=== PATIENT | female | born 1955 | race Caucasian/White ===

== ENCOUNTER 2018-04-28 20:00 | Emergency (ER) | payer SELFPAY ==
[2016-09-16 13:04] VITALS: Wt 86.2 kg
[~2018-04-28 20:00] MED LIST: AMLO-111 PO; AMLO2.5T76 PO; ASPI-1471 PO; ASPI-879 PO; ATOR10TA24 PO; CHOL400C10 PO; CITA-145 PO; DILT120T13 PO; DILT240C PO; DILT240C76 PO; DILT360C35 PO; GARL1CAP15 PO; LEVO50TA86 PO; LEVO75TA68 PO; LEVO75TA73 PO; LISI20TA29 PO; LUTE6CAP11 PO; MAG 64 PO; METO25TA93 PO; NEBI10TA4 PO; PRO150 PO; RIVA15TA PO; RIVA20TA PO
[2018-04-28] MEDS ORDERED: DILT120T13 PO (20:19)
[2018-04-28] MEDS ORDERED: DILT60TA33 PO (20:19)
[2018-04-28] MEDS ORDERED: NS(*) 0.9% 1000 ML BAG 1,000 ML IV ONE ×2 (20:25→22:00)
[2018-04-28 20:35] LABS: PLATELET COUNT, AUTOMATED 161 K/uL (150-450)
--- NOTE | 2018-04-28 20:36 | ER Report ---
History and Physical Time Seen By MD: 20:10 Hx. of Stated Complaint: pt c/o "Afib attack" onset approx 33 hours ago (pt was out of town), tried to convert at home but was unsuccessful. Pt c/o weakness and fatigue. HPI/ROS CHIEF COMPLAINT: irregular heartrate HISTORY OF PRESENT ILLNESS: Frank is 63-year-old female with history of known paroxysmal a atrial fibrillation. This has been complicated by history of ischemic stroke 2. The most recent was 2 years ago and was prior to her being placed on Xarelto. She does not currently have a instructional coach. Patient occasionally goes into atrial fibrillation, which she identifies by fast heart rate as well as feeling of fatigue. Patient denies chest pain, shortness of angelica ath, nausea, vomiting, fever, change in diet, exercise, or travel. Patient denies swelling in legs or leg pain. Patient states she has had cardioversion successfully previously and is hoping for some type of conversion of her rhythm back into sinus rhythm. REVIEW OF SYSTEMS: Constitutional: No fever, no chills. Eyes: No discharge. ENT: No sore throat. Cardiovascular: No chest pain, no palpitations. Respiratory: No cough, no shortness of breath. Gastrointestinal: No abdominal pain, no vomiting. Genitourinary: no urinary symptoms Musculoskeletal: No back pain. Skin: No rashes. Neurological: No headache. Remainder of the 14 system rev: Yes Allergies: Coded Allergies: Sulfa (Sulfonamide Antibiotics) (Verified Allergy, Severe, Slufing of sk in, 04/28/18) Penicillins (Verified Allergy, Unknown, ANAPHYLAXIS, 04/28/18) ALL "CILLINS" Tetracyclines (Verified Allergy, Unknown, ANAPHYLAXIS, 04/28/18) Home Meds Reported Medications Diltiazem Hcl (DILTIAZEM HCL) 60 Mg Tablet, 60 MG PO QPM 04/28/18 Diltiazem Hcl (DILTIAZEM HCL) 120 Mg Tablet, 120 MG PO QAM 04/28/18 Rivaroxaban 15 Mg (XARELTO 15 MG) 15 Mg Tablet, 15 MG PO DAILY, TAB 01/25/17 Levothyroxine Sodium (LEVOTHYROXINE SODIUM) 50 Mcg Tablet, 50 MCG PO QDAY, TAB 01/25/17 Discontinued Reported Medications [Mag 64] No Conflict Check, PO DAILY 01/25/17 Reviewed Nurses Notes: Yes Old Medical Records Reviewed: Yes Hx Smoking: No Smoking Status: Never Smoker Hx Substance Use Disorder: No Hx Alcohol Use: No Constitutional Vital Sign - Last 24 Hours 04/28/18 04/28/18 04/28/18 04/28/18 20:00 20:05 20:05 20:06 Temp 97.5 Pulse ??? 109 ??? Resp 16 B/P (MAP) 128/100 (109) Pulse Ox 98 O2 Delivery Room Air 04/28/18 04/28/18 04/28/18 04/28/18 20:10 20:13 20:15 20:20 Pulse 96 ??? 87 Resp 11 15 17 B/P (MAP) 135/97 (110) 145/100 (115) Pulse Ox 97 97 95 04/28/18 04/28/18 04/28/18 04/28/18 20:25 20:30 20:35 20:40 Pulse 90 81 78 ??? Resp 12 12 12 B/P (MAP) 114/90 (98) Pulse Ox 97 91 95 04/28/18 04/28/18 04/28/18 04/28/18 20:45 20:50 20:55 21:00 Pulse ??? 72 78 89 Resp 15 15 9 16 B/P (MAP) 114/106 (109) 115/81 (92) Pulse Ox 95 95 94 04/28/18 04/28/18 04/28/18 04/28/18 21:05 21:10 21:15 21:20 Pulse 75 76 66 Resp 18 9 9 14 B/P (MAP) 104/77 (86) Pulse Ox 96 96 95 97 04/28/18 04/28/18 04/28/18 04/28/18 21:25 21:28 21:30 21:35 Pulse 71 80 71 71 Resp 16 10 11 B/P (MAP) 107/85 (92) 113/81 (92) 105/70 (82) Pulse Ox 98 95 04/28/18 04/28/18 04/28/18 04/28/18 21:40 21:42 21:45 21:50 Pulse 60 58 Resp 14 9 10 B/P (MAP) 90/73 (79) 102/70 (81) 99/72 (81) 97/68 (78) Pulse Ox 94 97 95 04/28/18 04/28/18 04/28/18 04/28/18 21:55 22:00 22:05 22:10 Pulse 58 ??? 59 59 Resp 8 10 17 5 B/P (MAP) 94/64 (74) 94/69 (77) 93/71 (78) Pulse Ox 96 97 94 96 04/28/18 22:20 Pulse 56 Resp 7 B/P (MAP) 88/64 (72) Pulse Ox 96 Physical Exam General Appearance: [The patient is alert, has no immediate need for airway protection and no signs of toxicity.] [ ] Eyes: Pupils equal and round no pallor or injection. ENT, Mouth: Mucous membranes are moist. No thyroid mass, no carotid bruit Respiratory: There are no retractions, lungs are clear to auscultation. Cardiovascular: irregular rhythm, borderline tachycardia, pulses = in all extremities. Gastrointestinal: Abdomen is soft and non tender, no masses, bowel sounds normal. Neurological: alert, oriented, moves all extremities, no gross cn deficits Skin: Warm and dry, no rashes. Musculoskeletal: Neck is supple non tender. Extremities are nontender, nonswollen and have full range of motion. [ ] DIFFERENTIAL DIAGNOSIS: After history and physical exam differential diagnosis was considered for electrolyte disorder, acute ischemia, VTE, dehydration, hyperthyroid, or other emergent cause of atrial fibrillation. Medical Decision Making Data Points Result Diagram: 04/28/18200404/28/182004 Laboratory Hematology Test 04/28/18 20:05 Red Blood Count 5.10 M/uL (4.17-5.56) Mean Corpuscular Volume 90.7 fL (80.0-96.0) Mean Corpuscular Hemoglobin 31.9 pg (26.0-33.0) Mean Corpuscular Hemoglobin Concent 35.2 g/dL (32.0-36.0) Red Cell Distribution Width 12.7 % (11.5-14.5) Mean Platelet Volume 9.1 fL (7.2-11.1) Neutrophils (%) (Auto) 36.0 % (39.4-72.5) Lymphocytes (%) (Auto) 41.7 % (17.6-49.6) Monocytes (%) (Auto) 21.1 % (4.1-12.4) Eosinophils (%) (Auto) 0.3 % (0.4-6.7) Basophils (%) (Auto) 0.9 % (0.3-1.4) Nucleated RBC Relative Count (auto) 0.0 /100WBC Neutrophils # (Auto) 2.0 K/uL (2.0-7.4) Lymphocytes # (Auto) 2.3 K/uL (1.3-3.6) Monocytes # (Auto) 1.2 K/uL (0.3-1.0) Eosinophils # (Auto) 0.0 K/uL (0.0-0.5) Basophils # (Auto) 0.0 K/uL (0.0-0.1) Nucleated RBC Absolute Count (auto) 0.00 K/uL Peripheral Blood Smear Yes Y/N Sodium Level 139 mmol/L (137-145) Potassium Level 3.8 mmol/L (3.5-5.0) Chloride Level 103 mmol/L (98-107) Carbon Dioxide Level 23 mmol/L (22-31) Blood Urea Nitrogen 16 mg/dl (7-18) Creatinine 0.90 mg/dl (0.52-1.04) Glomerular Filtration Rate Calc > 60.0 Random Glucose 120 mg/dl (75-110) Calcium Level 9.5 mg/dl (8.4-10.2) Phosphorus Level 3.4 mg/dl (2.5-4.5) Magnesium Level 2.5 mg/dl (1.7-2.2) Total Bilirubin 0.6 mg/dl (0.2-1.3) Aspartate Amino Transf (AST/SGOT) 28 U/L (0-35) Alanine Aminotransferase (ALT/SGPT) 30 U/L (0-56) Alkaline Phosphatase 49 U/L (0-126) Total Protein 8.4 g/dl (6.3-8.2) Albumin 4.6 g/dl (3.5-5.0) Chemistry Test 04/28/18 20:05 White Blood Count 5.5 k/uL (4.5-11.0) Red Blood Count 5.10 M/uL (4.17-5.56) Hemoglobin 16.3 g/dL (12.0-16.0) Hematocrit 46.3 % (34.0-47.0) Mean Corpuscular Volume 90.7 fL (80.0-96.0) Mean Corpuscular Hemoglobin 31.9 pg (26.0-33.0) Mean Corpuscular Hemoglobin Concent 35.2 g/dL (32.0-36.0) Red Cell Distribution Width 12.7 % (11.5-14.5) Platelet Count 161 K/uL (150-450) Mean Platelet Volume 9.1 fL (7.2-11.1) Neutrophils (%) (Auto) 36.0 % (39.4-72.5) Lymphocytes (%) (Auto) 41.7 % (17.6-49.6) Monocytes (%) (Auto) 21.1 % (4.1-12.4) Eosinophils (%) (Auto) 0.3 % (0.4-6.7) Basophils (%) (Auto) 0.9 % (0.3-1.4) Nucleated RBC Relative Count (auto) 0.0 /100WBC Neutrophils # (Auto) 2.0 K/uL (2.0-7.4) Lymphocytes # (Auto) 2.3 K/uL (1.3-3.6) Monocytes # (Auto) 1.2 K/uL (0.3-1.0) Eosinophils # (Auto) 0.0 K/uL (0.0-0.5) Basophils # (Auto) 0.0 K/uL (0.0-0.1) Nucleated RBC Absolute Count (auto) 0.00 K/uL Peripheral Blood Smear Yes Y/N Glomerular Filtration Rate Calc > 60.0 Calcium Level 9.5 mg/dl (8.4-10.2) Phosphorus Level 3.4 mg/dl (2.5-4.5) Magnesium Level 2.5 mg/dl (1.7-2.2) Total Bilirubin 0.6 mg/dl (0.2-1.3) Aspartate Amino Transf (AST/SGOT) 28 U/L (0-35) Alanine Aminotransferase (ALT/SGPT) 30 U/L (0-56) Alkaline Phosphatase 49 U/L (0-126) Total Protein 8.4 g/dl (6.3-8.2) Albumin 4.6 g/dl (3.5-5.0) EKG/Imaging EKG Interpretation 12 lead EKG: Rhythm: atrial fibrillation, PVC Mosca: normal QRS: normal ST segments: borderline st depression af, v5-6; TWI V4-6 [ ] Rpt EK Rhythm - sinus bradycardia Mosca - nl qrs - nl ST segments - flattened ST throughout; TWI V4-5 Monitor Interpretation: Atrial Fibrillation ED Course/Re-evaluation ED Course Patient presents with relation and an apparent onset of one day ago. Well patient does not have significant tachycardia, she is very symptomatic. Patient is hemodynamically stable so we discussed multiple options for potential treatment. After review of electrolytes and TSH to ensure that patient did not have significant clearly reversible cause of atrial fibrillation, after discussion Riss and benefits of various treatment methods, she ultimately agreed to attempted chemical conversion with which I elected to use procainamide. I monitored patient throughout procainamide infusion and at approximately 15 m inutes patient spontaneously converted without ill effect. We monitored patient who remained in sinus rhythm and asymptomatic in the ED stay. At this point we'll discharge and recommend close follow-up. Patient does not have instructional coach but is limited due to insurance. Recommend follow-up in [facility] with referral as indicated. Patient understands strict return precautions. Decision to Disposition Date: Apr 28, 2018 Decision to Disposition Time: 22:41 Critical Care Time I spent a total of 45 minutes of critical care time in obtaining history, performing a physical exam, bedside monitoring of interventions, collecting and interpreting tests and discussion with consultants but not including time spent performing procedures. Depart Departure Latest Vital Signs Vital Signs Date Time Temp Pulse Resp B/P (MAP) Pulse Ox O2 Delivery O2 Flow Rate FiO2 04/28/18 22:20 56 7 88/64 (72) 96 04/28/18 20:05 97.5 Room Air Impression: Primary Impression: Rapid atrial fibrillation Condition: Improved Disposition: HOME OR SELF-CARE Patient Instructions: A-fib (Atrial Fibrillation) (ED) Additional Instructions: As we discussed, follow up with your primary doctor for further recommendations for management of your intermittent atrial fibrillation. Return for any concerns. LIZ WHITMAN MD Apr 28, 2018 20:36
[2018-04-28] MEDS ORDERED: D5W IVPB ONE (20:55)
[2018-04-28] MEDS ORDERED: PROCAINAMIDE HCL IVPB ONE (20:55)
--- NOTE | 2018-04-28 21:00 | RADIOLOGY IMAGING REPORT ---
[place] [facility] [place] Jenae Burrows : 1955 MR: [id number] V: [id number] EXAM DATE: ORDERING PHYSICIAN: LIZ WHITMAN TECHNOLOGIST: Location: [facility] [place] Patient: Jenae Burrows : 1955 Visit/Account:[id number] Date of Sevice: 04/28/2018 Examination: CHEST SINGLE AP Comparison: 01/25/2017 and earlier. History: Shortness of breath. Findings: Cardiac and hilar contour size is within normal limits. No consolidation, nodule, or peribr onchial inflammation. No pneumothorax, edema, or effusion. Osseous structures are intact. IMPRESSION: No evidence of acute cardiopulmonary disease. Report Dictated By: Darrick Hassan MD at 04/28/2018 8:55 PM Report E-Signed By: Darrick Hassan MD at 04/28/2018 8:56 PM WSN:[id number]
--- NOTE | 2018-04-28 22:06 | EKG ---
FACILITY: [facility] - [place] PATIENT NAME: DAWN ASHLEY : [id number] MR: [id number] V: [id number] EXAM DATE: ORDERING PHYSICIAN: LIZ WHITMAN TECHNOLOGIST: QUINCY Test Reason : cardiovert Blood Pressure : / mmHG Vent. Rate : 058 BPM Atrial Rate : 058 BPM P-R Int : 168 ms QRS Dur : 088 ms QT Int : 446 ms P-R-T Axes : -27 006 -43 degrees QTc Int : 437 ms Sinus bradycardia Diffuse T flattening T inversion consistent with anterior ischemia vs normal variant When compared with ECG of 28-APR-2018 20:07, Sinus rhythm has replaced Atrial fibrillation Vent. rate has decreased BY 39 BPM T inversion now more pronounced Confirmed by VENKAT ROACH ([id number]) on 04/29/2018 3:28:19 AM Referred By: J CARLOS Confirmed By:VENKAT ROACH
--- NOTE | 2018-04-28 22:06 | EKG ---
FACILITY: [facility] PATIENT NAME: DAWN ASHLEY : [id number] MR: [id number] V: [id number] EXAM DATE: ORDERING PHYSICIAN: LIZ WHITMAN TECHNOLOGIST: QUINCY Test Reason : cardiovert Blood Pressure : / mmHG Vent. Rate : 059 BPM Atrial Rate : 059 BPM P-R Int : 216 ms QRS Dur : 084 ms QT Int : 460 ms P-R-T Axes : 000 010 -14 degrees QTc Int : 455 ms Sinus bradycardia with 1st degree AV block T inversion consistent with ant ischemia Diffuse T flattening When compared with ECG of 28-APR-2018 21:42, RI interval has increased Confirmed by VENKAT ROACH ([id number]) on 04/29/2018 3:29:12 AM Referred By: J CARLOS Confirmed By:VENKAT ROACH
--- NOTE | 2018-04-28 22:10 | EKG ---
FACILITY: [facility] PATIENT NAME: DAWN ASHLEY : [id number] MR: [id number] V: [id number] EXAM DATE: ORDERING PHYSICIAN: LIZ WHITMAN TECHNOLOGIST: QUINCY Test Reason : a fib Blood Pressure : / mmHG Vent. Rate : 097 BPM Atrial Rate : 312 BPM P-R Int : 000 ms QRS Dur : 076 ms QT Int : 346 ms P-R-T Axes : 000 004 265 degrees QTc Int : 439 ms Atrial fibrillation with PVC ST and T wave abnormality, consider lateral ischemia or digitalis effect Abnormal ECG When compared with ECG of 16-FEB-2017 01:39, ST no longer depressed in Anterior leads Now with lateral T inversion Confirmed by VENKAT ROACH ([id number]) on 04/29/2018 3:26:56 AM Referred By: J CARLOS Confirmed By:VENKAT ROACH
[2018-04-28 22:40] VITALS: BP 101/71
== END 2018-04-28 22:53 | disposition home or self-care (01) ==
LOC: ER 20:12
DX: I48.91 Unspecified atrial fibrillation (principal); I44.0 Atrioventricular block, first degree; R94.31 Abnormal electrocardiogram [ECG] [EKG]
CPT/HCPCS: 71045; 83735; 84100; 84443; 85025; 93005; 96361; 96365; 99291; J2690; J7030; J7060; 82040; 82247; 82310; 82374; 82435; 82565; 82947; 84075; 84132; 84155; 84295; 84450; 84460; 84520

== ENCOUNTER 2018-05-04 21:19 | Emergency (ER) | payer SELFPAY ==
[2016-09-16 13:04] VITALS: BMI 26.4
[~2018-05-04 21:19] MED LIST changes: +DILT60TA33 PO
--- NOTE | 2018-05-04 21:28 | ER Report ---
History and Physical Time Seen By MD: 21:28 HPI/ROS CHIEF COMPLAINT: Rapid atrial fibrillation HISTORY OF PRESENT ILLNESS: 64-year-old female. The history of paroxysmal atrial fibrillation. She is undergone many cardioversions. She has a previous ER visit from approximately 10 days ago here where she was treated with IV procainamide for conversion. Patient notes a mild fatigue and dizziness. Patient denies chest pain, shortness of breath or diaphoresis. REVIEW OF SYSTEMS: Respiratory: No cough, no dyspnea. Cardiovascular: As above Gastrointestinal: No vomiting, no abdominal pain. Musculoskeletal: No back pain. Allergies: Coded Allergies: Sulfa (Sulfonamide Antibiotics) (Verified Allergy, Severe, Slufing of skin, 05/04/18) Penicillins (Verified Allergy, Unknown, ANAPHYLAXIS, 05/04/18) ALL "CILLINS" Tetracyclines (Verified Allergy, Unknown, ANAPHYLAXIS, 05/04/18) Home Meds Reported Medications Diltiazem Hcl (DILTIAZEM HCL) 60 Mg Tablet, 60 MG PO QPM 04/28/18 Diltiazem Hcl (DILTIAZEM HCL) 120 Mg Tablet, 120 MG PO QAM 04/28/18 Rivaroxaban 15 Mg (XARELTO 15 MG) 15 Mg Tablet, 15 MG PO DAILY, TAB 01/25/17 Levothyroxine Sodium (LEVOTHYROXINE SODIUM) 50 Mcg Tablet, 50 MCG PO QDAY, TAB 01/25/17 Discontinued Reported Medications [Mag 64] No Conflict Check, PO DAILY 01/25/17 Reviewed Nurses Notes: Yes Old Medical Records Reviewed: Yes Hx Smoking: No Smoking Status: Never Smoker Hx Substance Use Disorder: No Hx Alcohol Use: No Constitutional Vital Sign - Last 24 Hours 05/04/18 05/04/18 05/04/18 05/04/18 21:19 21:27 21:27 21:29 Temp 98.3 Pulse ??? 147 Resp 16 B/P (MAP) 212/159 (176) 212/159 217/158 (177) Pulse Ox 93 O2 Delivery Room Air 05/04/18 05/04/18 05/04/18 05/04/18 21:49 22:00 22:19 22:30 Pulse 131 119 Resp 11 8 B/P (MAP) 115/93 (100) 162/115 (131) Pulse Ox 95 95 05/04/18 05/04/18 05/04/1829/18 22:35 22:40 22:45 22:50 Pulse 117 123 125 128 Resp 12 6 5 7 B/P (MAP) 156/91 (112) 134/112 (119) 146/94 (111) Pulse Ox 97 98 95 96 05/04/18 05/04/18 05/04/18 05/04/18 22:55 23:00 23:05 23:10 Pulse 114 Resp 6 B/P (MAP) 143/116 (125) 129/104 (112) 134/124 (127) 130/115 (120) Pulse Ox 96 05/04/18 05/04/18 05/04/18 05/04/18 23:15 23:20 23:25 23:30 Pulse 130 Resp 14 B/P (MAP) 147/133 (138) 83/35 (51) 102/93 (96) 114/97 (103) Pulse Ox 98 05/04/18 05/04/18 05/04/18 05/04/18 23:35 23:40 23:45 23:50 Pulse 108 Resp 5 B/P (MAP) 99/79 (86) 94/57 (69) 121/94 (103) 114/82 (93) Pulse Ox 96 05/04/18 05/05/18 05/05/18 05/05/18 23:55 00:00 00:05 00:10 B/P (MAP) 134/113 (120) 101/69 (80) 92/69 (77) 80/69 (73) 05/05/18 05/05/18 05/05/18 05/05/18 00:15 00:20 00:25 00:30 Pulse 111 Resp 6 B/P (MAP) 107/95 (99) 109/96 (100) 82/66 (71) 100/90 (93) Pulse Ox 97 05/05/18 05/05/18 05/05/18 05/05/18 00:35 00:40 00:45 00:50 Pulse 124 79 Resp 6 11 B/P (MAP) 98/81 (87) 109/91 (97) 101/75 (84) 115/86 (96) Pulse Ox 97 95 05/05/18 05/05/18 00:55 01:10 Pulse 85 Resp 16 B/P (MAP) 105/80 (88) 142/85 (104) Pulse Ox 95 O2 Delivery Room Air Intake and Output 05/04/18 05/04/18 05/05/18 15:00 23:00 07:00 Intake Total 251 ml Balance 251 ml Physical Exam General Appearance: The patient is alert, has no immediate need for airway protection and no current signs of toxicity. svp operations shows atrial fibrillation with a rate of 167 bpm HEENT: Pupils equal and round no injection. Oropharynx without redness or exudate, mucous. Membranes are moist Respiratory: Chest is non tender, lungs are clear to auscultation. Cardiac: Tachycardic, irregular rate and rhythm Gastrointestinal: Abdomen is soft and non tender, no masses, bowel sounds normal. Musculoskeletal: Neck: Neck is supple and non tender. Extremities have full range of motion and are non tender. Skin: No rashes or lesions. DIFFERENTIAL DIAGNOSIS: After history and physical exam differential diagnosis was considered for tachycardia, SVT, atrial fibrillation with rapid ventricular response, ventricular tachycardia Medical Decision Making Data Points Result Diagram: 05/04/18213805/04/182138 Laboratory Hematology Test 05/04/18 21:39 Red Blood Count 5.12 M/uL (4.17-5.56) Mean Corpuscular Volume 90.0 fL (80.0-96.0) Mean Corpuscular Hemoglobin 31.5 pg (26.0-33.0) Mean Corpuscular Hemoglobin Concent 35.0 g/dL (32.0-36.0) Red Cell Distribution Width 13.1 % (11.5-14.5) Mean Platelet Volume 9.2 fL (7.2-11.1) Neutrophils (%) (Auto) 29.8 % (39.4-72.5) Lymphocytes (%) (Auto) 51.7 % (17.6-49.6) Monocytes (%) (Auto) 16.7 % (4.1-12.4) Eosinophils (%) (Auto) 0.5 % (0.4-6.7) Basophils (%) (Auto) 1.3 % (0.3-1.4) Nucleated RBC Relative Count (auto) 0.0 /100WBC Neutrophils # (Auto) 1.4 K/uL (2.0-7.4) Lymphocytes # (Auto) 2.4 K/uL (1.3-3.6) Monocytes # (Auto) 0.8 K/uL (0.3-1.0) Eosinophils # (Auto) 0.0 K/uL (0.0-0.5) Basophils # (Auto) 0.1 K/uL (0.0-0.1) Nucleated RBC Absolute Count (auto) 0.00 K/uL Sodium Level 140 mmol/L (137-145) Potassium Level 3.9 mmol/L (3.5-5.0) Chloride Level 99 mmol/L (98-107) Carbon Dioxide Level 25 mmol/L (22-31) Blood Urea Nitrogen 19 mg/dl (7-18) Creatinine 1.00 mg/dl (0.52-1.04) Glomerular Filtration Rate Calc 55.8 Random Glucose 109 mg/dl (75-110) Calcium Level 9.9 mg/dl (8.4-10.2) Total Bilirubin 0.5 mg/dl (0.2-1.3) Aspartate Amino Transf (AST/SGOT) 29 U/L (0-35) Alanine Aminotransferase (ALT/SGPT) 30 U/L (0-56) Alkaline Phosphatase 80 U/L (0-126) Troponin I < 0.012 ng/ml Total Protein 8.9 g/dl (6.3-8.2) Albumin 4.9 g/dl (3.5-5.0) Chemistry Test 05/04/18 21:39 White Blood Count 4.7 k/uL (4.5-11.0) Red Blood Count 5.12 M/uL (4.17-5.56) Hemoglobin 16.1 g/dL (12.0-16.0) Hematocrit 46.1 % (34.0-47.0) Mean Corpuscular Volume 90.0 fL (80.0-96.0) Mean Corpuscular Hemoglobin 31.5 pg (26.0-33.0) Mean Corpuscular Hemoglobin Concent 35.0 g/dL (32.0-36.0) Red Cell Distribution Width 13.1 % (11.5-14.5) Platelet Count 152 K/uL (150-450) Mean Platelet Volume 9.2 fL (7.2-11.1) Neutrophils (%) (Auto) 29.8 % (39.4-72.5) Lymphocytes (%) (Auto) 51.7 % (17.6-49.6) Monocytes (%) (Auto) 16.7 % (4.1-12.4) Eosinophils (%) (Auto) 0.5 % (0.4-6.7) Basophils (%) (Auto) 1.3 % (0.3-1.4) Nucleated RBC Relative Count (auto) 0.0 /100WBC Neutrophils # (Auto) 1.4 K/uL (2.0-7.4) Lymphocytes # (Auto) 2.4 K/uL (1.3-3.6) Monocytes # (Auto) 0.8 K/uL (0.3-1.0) Eosinophils # (Auto) 0.0 K/uL (0.0-0.5) Basophils # (Auto) 0.1 K/uL (0.0-0.1) Nucleated RBC Absolute Count (auto) 0.00 K/uL Glomerular Filtration Rate Calc 55.8 Calcium Level 9.9 mg/dl (8.4-10.2) Total Bilirubin 0.5 mg/dl (0.2-1.3) Aspartate Amino Transf (AST/SGOT) 29 U/L (0-35) Alanine Aminotransferase (ALT/SGPT) 30 U/L (0-56) Alkaline Phosphatase 80 U/L (0-126) Troponin I < 0.012 ng/ml Total Protein 8.9 g/dl (6.3-8.2) Albumin 4.9 g/dl (3.5-5.0) EKG/Imaging EKG Interpretation 12 lead EK Rhythm: Atrial fibrillation with rapid ventricular response, rate 162 [place]: normal QRS: normal ST segments: Diffuse nonspecific ST and T-wave changes 12 lead EK Rhythm: normal sinus rhythm, rate of 75 bpm Dal[place]ell: normal QRS: normal ST segments: normal, no evidence of ischemia or dysrhythmia Imaging X-ray: Two-view chest x-ray was obtained. I viewed the images myself on the PACS system. My interpretation of the images is: No infiltrate, no effusion, normal mediastinum. The radiologist interpretation had no clinically significant variation from this interpretation. ED Course/Re-evaluation Clinical Indication for ER IV: Hydration, IV Access ED Course Patient was admitted to an examination room. H&P was done. The differential diagnoses was considered. On clinical examination. Patient has stable vital signs. The monitor shows she's been atrial fibrillation with rapid ventricular rate in the 160s. She has a long history of paroxysmal atrial fibrillation. Her recent ER visit. She converted with an infusion of procainamide. This will be repeated. She receives 2 g of procainamide over an hour and 15 minutes. She finally converts to sinus rhythm. An EKG is performed documenting it. Patient advised to follow-up with her telegraph installer. Decision to Disposition Date: May 05, 2018 Decision to Disposition Time: 00:52 Critical Care Time I spent a total of 60 of critical care time in obtaining history, performing a physical exam, bedside monitoring of interventions, collecting and interpreting tests and discussion with consultants but not including time spent performing procedures. Depart Departure Latest Vital Signs Vital Signs Date Time Temp Pulse Resp B/P (MAP) Pulse Ox O2 Delivery O2 Flow Rate FiO2 05/05/18 01:10 85 16 142/85 (104) 95 Room Air 05/04/18 21:27 98.3 Impression: Primary Impression: Paroxysmal atrial fibrillation with rapid ventricular response Condition: Improved Disposition: HOME OR SELF-CARE Patient Instructions: A-fib (Atrial Fibrillation) (ED) Additional Instructions: Follow-up with your primary care or telegraph installer. ANURADHA KURTZ DO May 04, 2018 21:28
[2018-05-04] MEDS ORDERED: DILTIAZEM 5 MG/ML 5ML IVPUSH IVP ONE (21:35)
--- NOTE | 2018-05-04 21:51 | EKG ---
FACILITY: [facility] - [place] PATIENT NAME: DAWN ASHLEY : [id number] MR: [id number] V: [id number] EXAM DATE: ORDERING PHYSICIAN: ANURADHA KURTZ TECHNOLOGIST: ANCA Test Reason : TACHYCARDIA Blood Pressure : / mmHG Vent. Rate : 162 BPM Atrial Rate : 163 BPM P-R Int : 000 ms QRS Dur : 088 ms QT Int : 288 ms P-R-T Axes : 000 002 172 degrees QTc Int : 472 ms Atrial fibrillation with rapid ventricular response ST and T wave abnormality, consider lateral ischemia or digitalis effect Abnormal ECG When compared with ECG of 28-APR-2018 21:52, Atrial fibrillation has replaced Sinus rhythm Vent. rate has increased BY [address] now depressed in Anterolateral leads Nonspecific T wave abnormality, improved in Anterior leads Inverted T waves have replaced nonspecific T wave abnormality in Lateral leads Confirmed by MUKESH FRAGOSO ([id number]) on 05/05/2018 6:24:38 AM Referred By: JERARDO Confirmed By:MUKESH FRAGOSO
[2018-05-04 21:54] LABS: PLATELET COUNT, AUTOMATED 152 K/uL (150-450)
[2018-05-04] MEDS ORDERED: PROCAINAMIDE HCL IVPB PRN (22:05)
[2018-05-04] MEDS ORDERED: D5W IVPB PRN (22:05)
--- NOTE | 2018-05-04 22:42 | RADIOLOGY IMAGING REPORT ---
FACILITY: [facility] - [place] PATIENT NAME: Jenae Burrows : 1955 MR: [id number] V: [id number] EXAM DATE: ORDERING PHYSICIAN: ANURADHA KURTZ TECHNOLOGIST: Location: [facility] Patient: Jenae Burrows : 1955 Visit/Account:[id number] Date of Sevice: 05/04/2018 CHEST SINGLE AP Indication: Chest pain. Comparison: 04/28/2018 Findings: The lungs are clear. No pneumothorax or pleural effusion. Heart size is normal. IMPRESSION: 1. No acute cardiopulmonary process. Report Dictated By: Eliseo Dubon at 05/04/2018 10:36 PM Report E-Signed By: Eliseo Dubon at 05/04/2018 10:38 PM WSN:[id number]
[2018-05-05] MEDS ORDERED: DILTIAZEM 5 MG/ML 5ML IVPUSH IVP ONE (00:50)
[2018-05-05 01:10] VITALS: BP 142/85
--- NOTE | 2018-05-05 06:40 | EKG ---
[place] [facility] [place] NAME: DAWN ASHLEY : [id number] MR: [id number] V: [id number] EXAM DATE: ORDERING PHYSICIAN: ANURADHA KURTZ TECHNOLOGIST: ANCA Test Reason : REPEAT Blood Pressure : / mmHG Vent. Rate : 077 BPM Atrial Rate : 077 BPM P-R Int : 184 ms QRS Dur : 086 ms QT Int : 424 ms P-R-T Axes : 074 -03 015 degrees QTc Int : 479 ms Normal sinus rhythm Nonspecific T wave abnormality Prolonged QT Abnormal ECG Confirmed by JACOBO BERRY ([id number]) on 05/05/2018 6:17:59 PM Referred By: JERARDO Confirmed By:JACOBO BERRY
== END 2018-05-05 01:10 | disposition home or self-care (01) ==
LOC: ER 21:31
DX: I48.0 Paroxysmal atrial fibrillation (principal)
CPT/HCPCS: 71045; 84484; 85025; 93005; 96365; 96366; 96375; J3490; J7060; 82040; 82247; 82310; 82374; 82435; 82565; 82947; 84075; 84132; 84155; 84295; 84450; 84460; 84520; 99291; J2690

== ENCOUNTER 2018-05-11 00:37 | Emergency (ER) | payer SELFPAY ==
[2016-09-16 13:04] VITALS: Wt 86.2 kg
[2018-05-11] MEDS ORDERED: DILT120T13 PO (00:58)
[2018-05-11] MEDS ORDERED: LEVO50TA86 PO ×3 (00:58→01:01)
[2018-05-11] MEDS ORDERED: NS(*) 0.9% 1000 ML BAG 1,000 ML IV ONE ×2 (01:20→02:25)
[2018-05-11] MEDS ORDERED: PROPOFOL EMUL 10MG/ML 20 ML VL IVP ONE (01:20)
--- NOTE | 2018-05-11 01:38 | ER Report ---
History and Physical Time Seen By MD: 00:48 Hx. of Stated Complaint: headache, dizzy, a-fib started about 11:30pm HPI/ROS CHIEF COMPLAINT: atrial fibrillation HISTORY OF PRESENT ILLNESS: This is a 63 year old female. She has a history of paroxysmal atrial fibrillation. 1130 today had onset with dizziness. Also with headache. No chest pain. Has the racing feeling and tightness, but no real chest pain. Not short of breath. No fevers or chills. Has had conversion with diltiazem, procainamide and synchronized cardioversion in the past. The last two visits were with procainamide. No nausea or abdominal pain. No recent illness, was feeling fine prior to the atrial fibrillation starting. Allergies: Coded Allergies: Sulfa (Sulfonamide Antibiotics) (Verified Allergy, Severe, Slufing of sk in, 05/11/18) Penicillins (Verified Allergy, Unknown, ANAPHYLAXIS, 05/11/18) ALL "CILLINS" Tetracyclines (Verified Allergy, Unknown, ANAPHYLAXIS, 05/11/18) Home Meds Active Scripts Lorazepam (ATIVAN) 0.5 Mg Tablet, 0.5 MG PO Q6H PRN for ANXIETY, #10 TAB 0 Refills Prov:JG EDOUARD MD 05/11/18 Reported Medications Levothyroxine Sodium (LEVOTHYROXINE SODIUM) 50 Mcg Tablet, 25 MCG PO QODAY, TAB 05/11/18 Levothyroxine Sodium (LEVOTHYROXINE SODIUM) 50 Mcg Tablet, 50 MCG PO QDAY, TAB 05/11/18 Diltiazem Hcl (DILTIAZEM HCL) 120 Mg Tablet, 120 MG PO BID 05/11/18 Rivaroxaban 15 Mg (XARELTO 15 MG) 15 Mg Tablet, 15 MG PO DAILY, TAB 01/25/17 Discontinued Reported Medications Levothyroxine Sodium (LEVOTHYROXINE SODIUM) 50 Mcg Tablet, 75 MCG PO evry other day, TAB 05/11/18 Diltiazem Hcl (DILTIAZEM HCL) 60 Mg Tablet, 60 MG PO QPM 04/28/18 Diltiazem Hcl (DILTIAZEM HCL) 120 Mg Tablet, 120 MG PO QAM 04/28/18 Levothyroxine Sodium (LEVOTHYROXINE SODIUM) 50 Mcg Tablet, 50 MCG PO QDAY, TAB 01/25/17 Reviewed Nurses Notes: Yes Hx Smoking: No Smoking Status: Never Smoker Hx Substance Use Disorder: No Hx Alcohol Use: No Constitutional Vital Sign - Last 24 Hours 05/11/18 05/11/18 05/11/18 05/11/18 00:37 00:42 00:42 00:52 Temp 98.4 Pulse ??? 124 124 Resp 16 7 B/P (MAP) 145/90 145/90 (108) Pulse Ox 99 98 O2 Delivery Room Air 05/11/18 05/11/18 05/11/18 05/11/18 01:07 01:12 01:18 01:22 Pulse 116 ??? 105 Resp 11 7 B/P (MAP) 141/83 (102) Pulse Ox 98 05/11/18 05/11/18 05/11/18 05/11/18 01:27 01:30 01:30 01:32 Pulse ??? 103 Resp 21 8 B/P (MAP) 138/123 (128) Pulse Ox 97 98 O2 Flow Rate 2.0 05/11/18 05/11/18 05/11/18 05/11/18 01:33 01:35 01:37 01:39 Pulse ??? B/P (MAP) 115/77 (90) 124/79 (94) 115/78 (90) Pulse Ox 94 05/11/18 05/11/18 05/11/18 05/11/18 01:42 01:44 01:47 01:48 Pulse 95 77 Resp 0 9 B/P (MAP) 95/69 (78) 103/67 (79) Pulse Ox 97 97 05/11/18 05/11/18 05/11/18 05/11/18 01:52 01:57 02:00 02:02 Pulse 83 80 74 Resp 6 7 5 B/P (MAP) 107/82 (90) 99/78 (85) Pulse Ox 98 98 99 05/11/18 05/11/18 05/11/18 05/11/18 02:04 02:07 02:08 02:12 Pulse 74 87 Resp 9 7 B/P (MAP) 110/87 (95) 103/74 (84) 105/92 (96) Pulse Ox 98 100 05/11/18 05/11/18 05/11/18 05/11/18 02:14 02:17 02:20 02:22 Pulse 90 96 Resp 10 9 B/P (MAP) 114/74 (87) 116/83 (94) Pulse Ox 99 99 05/11/18 05/11/18 05/11/18 05/11/18 02:24 02:27 02:28 02:32 Pulse 83 ??? Resp 7 8 B/P (MAP) 117/90 (99) 121/81 (94) 105/84 (91) Pulse Ox 98 100 05/11/18 05/11/18 05/11/18 05/11/18 02:36 02:37 02:40 02:42 Pulse 86 ??? Resp 12 10 B/P (MAP) 101/80 (87) 124/115 (118) Pulse Ox 100 99 05/11/18 05/11/18 05/11/18 05/11/18 02:44 02:47 02:48 02:52 Pulse ? B/P (MAP) ???/??? (1665) ???/??? (1665) 05/11/18 05/11/18 05/11/18 05/11/18 02:55 02:57 03:00 03:02 Pulse 79 78 Resp 10 B/P (MAP) 107/83 (91) 109/75 (86) Pulse Ox 98 05/11/18 05/11/18 05/11/18 05/11/18 03:07 03:12 03:16 03:17 Pulse 60 ??? 56 B/P (MAP) 104/70 (81) 101/75 (84) Pulse Ox 97 95 05/11/18 05/11/18 05/11/18 05/11/18 03:20 03:22 03:24 03:27 Pulse 56 52 B/P (MAP) 105/68 (80) 101/64 (76) Pulse Ox 97 97 05/11/18 05/11/18 05/11/18 05/11/18 03:28 03:32 03:36 03:37 Pulse 52 53 B/P (MAP) 104/68 (80) 102/67 (79) 99/68 (78) Pulse Ox 97 96 05/11/18 05/11/18 05/11/18 05/11/18 03:40 03:42 03:44 03:47 Pulse 51 53 B/P (MAP) 100/68 (79) 95/61 (72) Pulse Ox 95 98 05/11/18 05/11/18 05/11/18 05/11/18 03:48 03:52 03:56 03:57 Pulse 53 52 B/P (MAP) 92/66 (75) 90/61 (71) 95/59 (71) Pulse Ox 98 98 05/11/18 05/11/18 05/11/18 05/11/18 04:00 04:02 04:04 04:07 Pulse 55 51 B/P (MAP) 100/68 (79) 96/73 (81) Pulse Ox 96 97 05/11/18 05/11/18 05/11/18 05/11/18 04:08 04:12 04:16 04:17 Pulse ??? 48 B/P (MAP) 106/64 (78) 106/73 (84) 107/69 (82) Pulse Ox 96 95 05/11/18 05/11/18 05/11/18 04:20 04:22 04:24 Pulse 49 B/P (MAP) 115/78 (90) 120/74 (89) Pulse Ox 96 Intake and Output 05/10/18 05/10/18 05/11/18 15:00 23:00 07:00 Intake Total 2175 ml Balance 2175 ml Physical Exam General Appearance: The patient is alert. No acute distress. Non-toxic in appearance. Eyes: Pupils are equal, round. No pallor, injection or icterus. ENT: Mucous membranes are moist. Normal oral mucosa. Posterior oropharynx is normal. Neck: Supple and non tender. Respiratory: Lungs are clear to auscultation. Cardiovascular: Irregularly irregular rhythm with tachycardia. No murmurs, gallops or rubs. Normal capillary refill. Gastrointestinal: Abdomen is soft and non tender. Nondistended. Normal active bowel sounds. Neurological: Alert and oriented x3. No focal neurologic deficits Skin: Warm and dry. DIFFERENTIAL DIAGNOSIS: After history and physical exam, differential diagnosis was considered for atrial fibrillation with rapid ventricular rate. Medical Decision Making Data Points Result Diagram: 05/11/18 0051 05/11/18 0051 Laboratory Hematology Test 05/11/18 00:51 Red Blood Count 5.19 M/uL (4.17-5.56) Mean Corpuscular Volume 90.1 fL (80.0-96.0) Mean Corpuscular Hemoglobin 31.5 pg (26.0-33.0) Mean Corpuscular Hemoglobin Concent 34.9 g/dL (32.0-36.0) Red Cell Distribution Width 12.8 % (11.5-14.5) Mean Platelet Volume 9.6 fL (7.2-11.1) Neutrophils (%) (Auto) % (39.4-72.5) Lymphocytes (%) (Auto) % (17.6-49.6) Monocytes (%) (Auto) % (4.1-12.4) Eosinophils (%) (Auto) % (0.4-6.7) Basophils (%) (Auto) % (0.3-1.4) Nucleated RBC Relative Count (auto) /100WBC Neutrophils # (Auto) K/uL (2.0-7.4) Lymphocytes # (Auto) K/uL (1.3-3.6) Monocytes # (Auto) K/uL (0.3-1.0) Eosinophils # (Auto) K/uL (0.0-0.5) Basophils # (Auto) K/uL (0.0-0.1) Nucleated RBC Absolute Count (auto) K/uL Neutrophils % (Manual) 40 % (39.4-72.5) Lymphocytes % (Manual) 23 % (17.6-49.6) Atypical Lymphocytes % 13 % Monocytes % (Manual) 24 % (4.1-12.4) Eosinophils % (Manual) 0 % (0.4-6.7) Basophils % (Manual) 0 % (0.3-1.4) Peripheral Blood Smear Yes Y/N Sodium Level 138 mmol/L (137-145) Potassium Level 3.6 mmol/L (3.5-5.0) Chloride Level 100 mmol/L (98-107) Carbon Dioxide Level 24 mmol/L (22-31) Blood Urea Nitrogen 13 mg/dl (7-18) Creatinine 1.00 mg/dl (0.52-1.04) Glomerular Filtration Rate Calc 55.8 Random Glucose 95 mg/dl (75-110) Calcium Level 10.0 mg/dl (8.4-10.2) Total Bilirubin 0.5 mg/dl (0.2-1.3) Aspartate Amino Transf (AST/SGOT) 30 U/L (0-35) Alanine Aminotransferase (ALT/SGPT) 33 U/L (0-56) Alkaline Phosphatase 80 U/L (0-126) Troponin I < 0.012 ng/ml Total Protein 9.3 g/dl (6.3-8.2) Albumin 5.0 g/dl (3.5-5.0) Chemistry Test 05/11/18 00:51 White Blood Count 5.1 k/uL (4.5-11.0) Red Blood Count 5.19 M/uL (4.17-5.56) Hemoglobin 16.3 g/dL (12.0-16.0) Hematocrit 46.7 % (34.0-47.0) Mean Corpuscular Volume 90.1 fL (80.0-96.0) Mean Corpuscular Hemoglobin 31.5 pg (26.0-33.0) Mean Corpuscular Hemoglobin Concent 34.9 g/dL (32.0-36.0) Red Cell Distribution Width 12.8 % (11.5-14.5) Platelet Count 163 K/uL (150-450) Mean Platelet Volume 9.6 fL (7.2-11.1) Neutrophils (%) (Auto) % (39.4-72.5) Lymphocytes (%) (Auto) % (17.6-49.6) Monocytes (%) (Auto) % (4.1-12.4) Eosinophils (%) (Auto) % (0.4-6.7) Basophils (%) (Auto) % (0.3-1.4) Nucleated RBC Relative Count (auto) /100WBC Neutrophils # (Auto) K/uL (2.0-7.4) Lymphocytes # (Auto) K/uL (1.3-3.6) Monocytes # (Auto) K/uL (0.3-1.0) Eosinophils # (Auto) K/uL (0.0-0.5) Basophils # (Auto) K/uL (0.0-0.1) Nucleated RBC Absolute Count (auto) K/uL Neutrophils % (Manual) 40 % (39.4-72.5) Lymphocytes % (Manual) 23 % (17.6-49.6) Atypical Lymphocytes % 13 % Monocytes % (Manual) 24 % (4.1-12.4) Eosinophils % (Manual) 0 % (0.4-6.7) Basophils % (Manual) 0 % (0.3-1.4) Peripheral Blood Smear Yes Y/N Glomerular Filtration Rate Calc 55.8 Calcium Level 10.0 mg/dl (8.4-10.2) Total Bilirubin 0.5 mg/dl (0.2-1.3) Aspartate Amino Transf (AST/SGOT) 30 U/L (0-35) Alanine Aminotransferase (ALT/SGPT) 33 U/L (0-56) Alkaline Phosphatase 80 U/L (0-126) Troponin I < 0.012 ng/ml Total Protein 9.3 g/dl (6.3-8.2) Albumin 5.0 g/dl (3.5-5.0) EKG/Imaging EKG Interpretation 12 lead EKG: At 00:56 hours Rhythm: Atrial fibrillation with rapid response, rate 124 12 lead EKG: At 03:09 hours after conversion with procainamide Rhythm: Sinus bradycardia, rate 58 [place]: normal QRS: Prolonged QT ST segments: Nonspecific flattening, no elevation or depression 12 lead EKG: At 04:07 hours after watching for an hour after conversion Rhythm: Sinus bradycardia, rate 5 to [place]: normal QRS: normal ST segments: Nonspecific T-wave flattening ED Course/Re-evaluation ED Course After initial evaluation and discussion with the patient we decided to go ahead and use sedation with synchronized cardioversion. We used propofol for sedation. The patient had a good result with the cardioversion starting at 200 J, converted after the first attempt to normal sinus rhythm however then went back into atrial fibrillation. Because of this, we then switched to medical cardioversion and went with procainamide. 1 g of procainamide in 250 cc of D5W was hung and run over an hour. The patient received 175 mL and finally converted. She did have some QT prolongation but no widening of the QRS and no hypotension with this. We then watched her in the ER for about an hour. QT length diminished. She remained in a normal sinus rhythm. She did feel shaky after this and this is a common feeling she is had after the procainamide. We talked about giving her something to help her relax and gave her 0.5 mg Ativan tablets to use as needed. Procedure: Procedural sedation. A pre-sedation evaluation was completed on the patient. Patient is an appropriate candidate for procedural sedation. The risks of the sedation were discussed with the patient. A time out was completed. The patient was reevaluated immediately prior to initiation of sedation. The patient was sedated with propofol. The patient was monitored with continuous pulse oximetry and quality assurance monitor body. There were no complications and no significant hypoxemia. I remained at the bedside for the sedation. The total time I spent in the procedural sedation was 15 minutes. Post sedation evaluation: Patient was alert and cooperative, hemodynamically stable with appropriate respiratory status, temperature and pain control without ongoing nausea and vomiting. Procedure: Elective electrical cardioversion. The patient was electively electrically cardioverted for atrial fibrillation. The patient was on a continuous laboratory monitor, with airway equipment at the bedside. The patient was on continuous pulse oximetry. The cardioversion was attempted with 200 J. The cardioversion was successful. The patient tolerated the procedure well with no complications. The procedure was performed by myself. Decision to Disposition Date: May 11, 2018 Decision to Disposition Time: 04:25 Depart Departure Latest Vital Signs Vital Signs Date Time Temp Pulse Resp B/P (MAP) Pulse Ox O2 Delivery O2 Flow Rate FiO2 05/11/18 04:24 120/74 (89) 05/11/18 04:22 49 96 05/11/18 02:57 10 05/11/18 01:30 2.0 05/11/18 00:42 98.4 Room Air Impression: Primary Impression: Atrial fibrillation with rapid ventricular response Condition: Improved Disposition: HOME OR SELF-CARE New Scripts Lorazepam (ATIVAN) 0.5 Mg Tablet 0.5 MG PO Q6H PRN for ANXIETY, #10 TAB 0 Refills Prov: JG EDOUARD MD 05/11/18 Patient Instructions: A-fib (Atrial Fibrillation) (ED) Additional Instructions: No changes to your medications at this time. Rest and increase fluids over the next few days. We are going to provide a few Ativan tablets 0.5mg every 6 hours as needed for shakiness and to help with sleep at this time. JG EDOUARD MD May 11, 2018 01:38
[2018-05-11] MEDS ORDERED: PROCAINAMIDE HCL IVPB ONE ×2 (01:40→01:50)
[2018-05-11] MEDS ORDERED: D5W IVPB ONE ×2 (01:40→01:50)
[2018-05-11 01:42] LABS: PLATELET COUNT, AUTOMATED 163 K/uL (150-450)
[2018-05-11] MEDS ORDERED: D5W(*) 250 ML BAG 250 ML ONE (01:59)
[2018-05-11 04:24] VITALS: BP 120/74
[2018-05-11] MEDS ORDERED: LORA-1455 PO (04:26)
[2018-05-11] MEDS ORDERED: LORazepam 0.5 MG TAB PO ONE (04:30)
--- NOTE | 2018-05-11 04:32 | EKG ---
FACILITY: [facility] - [place] PATIENT NAME: DAWN ASHLEY : [id number] MR: [id number] V: [id number] EXAM DATE: ORDERING PHYSICIAN: JG EDOUARD TECHNOLOGIST: JOHANN Test Reason : A FIB Blood Pressure : / mmHG Vent. Rate : 058 BPM Atrial Rate : 058 BPM P-R Int : 182 ms QRS Dur : 082 ms QT Int : 544 ms P-R-T Axes : 076 002 -06 degrees QTc Int : 534 ms Sinus bradycardia Nonspecific T wave abnormality Prolonged QT Abnormal ECG When compared with ECG of 11-MAY-2018 00:56, Sinus rhythm has replaced Atrial fibrillation Confirmed by JACOBO BERRY ([id number]) on 05/11/2018 8:24:54 AM Referred By: Confirmed By:JACOBO BERRY
--- NOTE | 2018-05-11 04:32 | EKG ---
FACILITY: [facility] PATIENT NAME: DAWN ASHLEY : [id number] MR: [id number] V: [id number] EXAM DATE: ORDERING PHYSICIAN: JG EDOUARD TECHNOLOGIST: JOHANN Test Reason : A FIB Blood Pressure : / mmHG Vent. Rate : 124 BPM Atrial Rate : 093 BPM P-R Int : 000 ms QRS Dur : 086 ms QT Int : 348 ms P-R-T Axes : 000 009 187 degrees QTc Int : 499 ms Atrial fibrillation with rapid ventricular response Nonspecific ST and T wave abnormality , probably digitalis effect Abnormal ECG When compared with ECG of 05-MAY-2018 00:56, Atrial fibrillation has replaced Sinus rhythm Confirmed by JACOBO BERRY ([id number]) on 05/11/2018 8:24:18 AM Referred By: Confirmed By:JACOBO BERRY
--- NOTE | 2018-05-11 04:33 | EKG ---
FACILITY: [facility] PATIENT NAME: DAWN ASHLEY : [id number] MR: [id number] V: [id number] EXAM DATE: ORDERING PHYSICIAN: JG EDOUARD TECHNOLOGIST: JOHANN Test Reason : A FIB Blood Pressure : / mmHG Vent. Rate : 052 BPM Atrial Rate : 052 BPM P-R Int : 168 ms QRS Dur : 082 ms QT Int : 494 ms P-R-T Axes : 063 005 001 degrees QTc Int : 459 ms Sinus bradycardia Nonspecific T wave abnormality Abnormal ECG When compared with ECG of 11-MAY-2018 03:09, QT has shortened Confirmed by JACOBO BERRY ([id number]) on 05/11/2018 8:24:29 AM Referred By: Confirmed By:AJCOBO BERRY
== END 2018-05-11 04:37 | disposition home or self-care (01) ==
LOC: ER 00:51
DX: I48.2 Chronic atrial fibrillation (principal)
CPT/HCPCS: 84484; 85025; 92960; 93005; 96361; 96365; 99152; 99285; J2690; J2704; J7030; J7060; 82040; 82247; 82310; 82374; 82435; 82565; 82947; 84075; 84132; 84155; 84295; 84450; 84460; 84520

== ENCOUNTER 2018-05-13 01:23 | Emergency (ER) | payer SELFPAY ==
[2016-09-16 13:04] VITALS: Wt 86.2 kg
[~2018-05-13 01:23] MED LIST changes: +LORA-1455 PO
[2018-05-13 02:16] LABS: PLATELET COUNT, AUTOMATED 145 K/uL (150-450)
[2018-05-13] MEDS ORDERED: D5W IVPB ONE (02:35)
[2018-05-13] MEDS ORDERED: PROCAINAMIDE HCL IVPB ONE (02:35)
--- NOTE | 2018-05-13 02:40 | ER Report ---
History and Physical Time Seen By MD: 01:30 HPI/ROS CHIEF COMPLAINT: Atrial fibrillation HISTORY OF PRESENT ILLNESS: Patient is a 63-year-old female with past medical history for paroxysmal atrial fibrillation and stroke. Patient had been seen in the emergency department for recent bouts of symptomatic atrial fibrillation on April 28 May 04 and again on May 11. Patient was medically cardioverted with procainamide on the visit to the in the there is an initial attempt at electrical cardioversion with success but then returned to atrial fibrillation on the patient was then given 1 g of procainamide over an hour and she converted again. Patient has had long-standing history of this. She was recommended for ablation but due to insurance reasons she is unable to pay for the procedure. Patient has tried "pill in the pocket" in the past with Rythmol which usually works however that has become less effective over time. Patient now is currently on oral diltiazem for rate control. Patient takes diltiazem at night and when her atrial fibrillation started around 11:30 PM this evening she took 2 additional doses of Cardizem which caused her heart rate to slow from the 1:30 range down into the 60-70 bpm range upon arrival to the emergency department. Patient is anticoagulated on Xarelto has been applied with her doses. Patient denies any chest pain or shortness of breath. But she does report severe positional vertigo and dizziness as well as headache. Patient reports similar presentations in the past REVIEW OF SYSTEMS: Constitutional: No fever, no chills. Eyes: No discharge. ENT: No sore throat. Cardiovascular: Irregular heartbeat Respiratory: No cough, no shortness of breath. Gastrointestinal: No abdominal pain, no vomiting. Genitourinary: No hematuria. Musculoskeletal: No back pain. Skin: No rashes. Neurological: Allergies: Coded Allergies: Sulfa (Sulfonamide Antibiotics) (Verified Allergy, Severe, Slufing of skin, 05/13/18) Penicillins (Verified Allergy, Unknown, ANAPHYLAXIS, 05/13/18) ALL "CILLINS" Tetracyclines (Verified Allergy, Unknown, ANAPHYLAXIS, 05/13/18) Home Meds Active Scripts Lorazepam (ATIVAN) 0.5 Mg Tablet, 0.5 MG PO Q6H PRN for ANXIETY, #10 TAB 0 Refills Prov:JG EDOUARD MD 05/11/18 Reported Medications Levothyroxine Sodium (LEVOTHYROXINE SODIUM) 50 Mcg Tablet, 25 MCG PO QODAY, TAB 05/11/18 Levothyroxine Sodium (LEVOTHYROXINE SODIUM) 50 Mcg Tablet, 50 MCG PO QDAY, TAB 05/11/18 Diltiazem Hcl (DILTIAZEM HCL) 120 Mg Tablet, 120 MG PO BID 05/11/18 Rivaroxaban 15 Mg (XARELTO 15 MG) 15 Mg Tablet, 15 MG PO DAILY, TAB 01/25/17 Discontinued Reported Medications Levothyroxine Sodium (LEVOTHYROXINE SODIUM) 50 Mcg Tablet, 75 MCG PO evry other day, TAB 05/11/18 Diltiazem Hcl (DILTIAZEM HCL) 60 Mg Tablet, 60 MG PO QPM 04/28/18 Diltiazem Hcl (DILTIAZEM HCL) 120 Mg Tablet, 120 MG PO QAM 04/28/18 Levothyroxine Sodium (LEVOTHYROXINE SODIUM) 50 Mcg Tablet, 50 MCG PO QDAY, TAB 01/25/17 Past Medical/Surgical History Past medical history for paroxysmal atrial fibrillation and history of stroke in the past. History of hypothyroidism Hx Smoking: No Smoking Status: Never Smoker Hx Substance Use Disorder: No Hx Alcohol Use: No Constitutional Vital Sign - Last 24 Hours 05/13/18 05/13/18 05/13/18 05/13/18 01:29 01:32 01:38 01:53 Temp 97.5 Pulse 84 83 72 Resp 8 11 12 B/P (MAP) 122/51 (74) 122/51 Pulse Ox 97 95 97 O2 Delivery Room Air 05/13/18 05/13/18 05/13/18 05/13/18 02:08 02:23 02:28 02:43 Pulse 69 70 64 70 Resp 9 8 6 8 Pulse Ox 96 96 97 97 05/13/18 05/13/18 05/13/18 05/13/18 02:58 03:13 03:20 03:25 Pulse 68 62 87 Resp 9 19 7 B/P (MAP) 115/89 (98) 109/85 (93) Pulse Ox 98 96 96 05/13/18 05/13/18 05/13/18 05/13/18 03:30 03:40 03:48 03:50 Pulse 82 Resp 13 B/P (MAP) 93/70 (78) 87/73 (78) 100/74 (83) 95/68 (77) Pulse Ox 98 05/13/18 05/13/18 03:55 04:00 Pulse 71 Resp 9 B/P (MAP) 90/75 (80) Pulse Ox 98 Physical Exam General/Constitutional: Patient is awake, alert, nontoxic and in no acute respiratory distress. Head: Normocephalic and atraumatic. Eyes: Conjunctival clear, Pupils are equal and reactive to light. Extraocular muscles are intact and symmetrical. Sclera are clear and anicteric. Ears:External canals are clear. Tympanic membranes are clear with normal la ndmarks and light reflex. Oropharyngeal: Mucous membranes are moist. There is no pharyngeal erythema or exudate. There are no palatal petechiae. Uvula is midline and symmetrical. Neck: Supple, no adenopathy. Cardiovascular: Heart noted for an irregularly irregular rhythm but rate controlled Pulmonary: Lungs are clear to auscultation bilaterally. There are no wheezes, rales, or rhonchi. Chest rise is symmetrical Abdomen: Soft, nontender, no guarding or peritoneal signs. Extremities: No gross deformities, No peripheral cyanosis. Able to move all 4 extremities. Neuro: Alert and oriented X3, Skin: No rashes, skin is warm dry and well perfused. Medical Decision Making Data Points Result Diagram: 05/13/1814405/13/18144 Laboratory Hematology Test 05/13/18 01:45 Red Blood Count 5.04 M/uL (4.17-5.56) Mean Corpuscular Volume 91.8 fL (80.0-96.0) Mean Corpuscular Hemoglobin 31.7 pg (26.0-33.0) Mean Corpuscular Hemoglobin Concent 34.6 g/dL (32.0-36.0) Red Cell Distribution Width 12.7 % (11.5-14.5) Mean Platelet Volume 9.5 fL (7.2-11.1) Neutrophils (%) (Auto) % (39.4-72.5) Lymphocytes (%) (Auto) % (17.6-49.6) Monocytes (%) (Auto) % (4.1-12.4) Eosinophils (%) (Auto) % (0.4-6.7) Basophils (%) (Auto) % (0.3-1.4) Nucleated RBC Relative Count (auto) /100WBC Neutrophils # (Auto) K/uL (2.0-7.4) Lymphocytes # (Auto) K/uL (1.3-3.6) Monocytes # (Auto) K/uL (0.3-1.0) Eosinophils # (Auto) K/uL (0.0-0.5) Basophils # (Auto) K/uL (0.0-0.1) Nucleated RBC Absolute Count (auto) K/uL Neutrophils % (Manual) 45 % (39.4-72.5) Lymphocytes % (Manual) 35 % (17.6-49.6) Atypical Lymphocytes % 10 % Monocytes % (Manual) 10 % (4.1-12.4) Eosinophils % (Manual) 0 % (0.4-6.7) Basophils % (Manual) 0 % (0.3-1.4) Peripheral Blood Smear Yes Y/N Sodium Level 141 mmol/L (137-145) Potassium Level 3.5 mmol/L (3.5-5.0) Chloride Level 104 mmol/L (98-107) Carbon Dioxide Level 22 mmol/L (22-31) Blood Urea Nitrogen 12 mg/dl (7-18) Creatinine 0.90 mg/dl (0.52-1.04) Glomerular Filtration Rate Calc > 60.0 Random Glucose 107 mg/dl (75-110) Calcium Level 9.7 mg/dl (8.4-10.2) Magnesium Level 2.1 mg/dl (1.7-2.2) Total Bilirubin 0.6 mg/dl (0.2-1.3) Aspartate Amino Transf (AST/SGOT) 27 U/L (0-35) Alanine Aminotransferase (ALT/SGPT) 28 U/L (0-56) Alkaline Phosphatase 68 U/L (0-126) Total Protein 8.6 g/dl (6.3-8.2) Albumin 4.7 g/dl (3.5-5.0) Chemistry Test 05/13/18 01:45 White Blood Count 4.0 k/uL (4.5-11.0) Red Blood Count 5.04 M/uL (4.17-5.56) Hemoglobin 16.0 g/dL (12.0-16.0) Hematocrit 46.2 % (34.0-47.0) Mean Corpuscular Volume 91.8 fL (80.0-96.0) Mean Corpuscular Hemoglobin 31.7 pg (26.0-33.0) Mean Corpuscular Hemoglobin Concent 34.6 g/dL (32.0-36.0) Red Cell Distribution Width 12.7 % (11.5-14.5) Platelet Count 145 K/uL (150-450) Mean Platelet Volume 9.5 fL (7.2-11.1) Neutrophils (%) (Auto) % (39.4-72.5) Lymphocytes (%) (Auto) % (17.6-49.6) Monocytes (%) (Auto) % (4.1-12.4) Eosinophils (%) (Auto) % (0.4-6.7) Basophils (%) (Auto) % (0.3-1.4) Nucleated RBC Relative Count (auto) /100WBC Neutrophils # (Auto) K/uL (2.0-7.4) Lymphocytes # (Auto) K/uL (1.3-3.6) Monocytes # (Auto) K/uL (0.3-1.0) Eosinophils # (Auto) K/uL (0.0-0.5) Basophils # (Auto) K/uL (0.0-0.1) Nucleated RBC Absolute Count (auto) K/uL Neutrophils % (Manual) 45 % (39.4-72.5) Lymphocytes % (Manual) 35 % (17.6-49.6) Atypical Lymphocytes % 10 % Monocytes % (Manual) 10 % (4.1-12.4) Eosinophils % (Manual) 0 % (0.4-6.7) Basophils % (Manual) 0 % (0.3-1.4) Peripheral Blood Smear Yes Y/N Glomerular Filtration Rate Calc > 60.0 Calcium Level 9.7 mg/dl (8.4-10.2) Magnesium Level 2.1 mg/dl (1.7-2.2) Total Bilirubin 0.6 mg/dl (0.2-1.3) Aspartate Amino Transf (AST/SGOT) 27 U/L (0-35) Alanine Aminotransferase (ALT/SGPT) 28 U/L (0-56) Alkaline Phosphatase 68 U/L (0-126) Total Protein 8.6 g/dl (6.3-8.2) Albumin 4.7 g/dl (3.5-5.0) EKG/Imaging EKG Interpretation EKG shows atrial fibrillation with a rate of 61 bpm. 05/13/2018 5:22:06 am current EKG shows sinus bradycardia with a ventricular rate of 55 bpm. Monitor Interpretation: Atrial Fibrillation ED Course/Re-evaluation Clinical Indication for ER IV: IV Access ED Course 05/13/2018 2:39:46 am patient with symptomatic paroxysmal atrial fibrillation requesting cardioversion. Onset of symptoms was approximately one hour prior to presentation to the emergency department. Risks and benefit were discussed. We offered electrical cardioversion versus chemical cardioversion. Patient prefers to choose the chemical cardioversion rate we discussed using Rythmol, patient has had refractory success with this in the past so she prefers using procainamide which has worked the last 3 times. Patient's electrolytes are normal including magnesium and potassium. Plan will be 1 g of procainamide infused over 1 hour. 05/13/2018 4:06:24 am patient has received approximately 83 mL's of the 250 ml load of procainamide. Pressure dropped to 90 systolic. The drip was held patient is currently getting a 500 mL bolus of saline we will see if her pressure normalizes to see if we can restart the drip. If not we will offer electrical c ardioversion as another option. 05/13/2018 4:58:48 am patient remains in rate controlled atrial fibrillation. Had a discussion with patient and family with regard to options at this point. I did offer electrical cardioversion all the risks and benefits were discussed. Patient would like to proceed with electric synchronous cardioversion in an attempt to revert to sinus rhythm. Patient understands that she may have refractory atrial fibrillation and despite electrical cardioversion she may james in in atrial fibrillation. Also discussed the risks of procedural sedation and also risks of cardioversion which include but are not limited to stroke and further dysrhythmias. 05/13/2018 5:17:15 am we were preparing to cardiovert patient and when we placed the paddles on the patient a quick look at the monitor showed that she had a regular rhythm. The telemetry monitor was then reviewed and patient was found to be in a sinus rhythm. Repeat EKG was performed which shows a sinus bradycardia with a rate of 55 bpm no evidence of atrial fibrillation. 05/13/2018 5:17:45 am plan at this time will be discharged home patient will follow up with her primary care physician. Total care time for this patient is 60 minutes excluding procedures Decision to Disposition Date: May 13, 2018 Decision to Disposition Time: 05:18 Critical Care Time Total critical care time for this patient excluding procedures was 60 minutes. Please see ED course for specifics of time Depart Departure Latest Vital Signs Vital Signs Date Time Temp Pulse Resp B/P (MAP) Pulse Ox O2 Delivery O2 Flow Rate FiO2 05/13/18 04:00 90/75 (80) 05/13/18 03:55 71 9 98 05/13/18 01:32 97.5 Room Air Impression: Primary Impression: Paroxysmal atrial fibrillation with rapid ventricular response Condition: Improved Disposition: HOME OR SELF-CARE Referrals: SANTIAGO HAWKINS MD (PCP) Patient Instructions: A-fib (Atrial Fibrillation) (ED) Additional Instructions: Continue all your outpatient medications as directed. Call later this morning to schedule a follow-up appointment with her primary care provider ILZ JACKSON MD May 13, 2018 02:40
--- NOTE | 2018-05-13 03:29 | EKG ---
FACILITY: [facility] PATIENT NAME: DAWN ASHLEY : [id number] MR: [id number] V: [id number] EXAM DATE: ORDERING PHYSICIAN: LIZ JACKSON TECHNOLOGIST: JOHANN Test Reason : A FIB Blood Pressure : / mmHG Vent. Rate : 061 BPM Atrial Rate : 098 BPM P-R Int : 000 ms QRS Dur : 082 ms QT Int : 444 ms P-R-T Axes : 000 021 039 degrees QTc Int : 446 ms Atrial fibrillation Nonspecific ST abnormality Abnormal ECG When compared with ECG of 11-MAY-2018 04:07, Atrial fibrillation has replaced Sinus rhythm Confirmed by Jamison Santiago ([id number] on 05/13/2018 6:20:43 AM Referred By: Confirmed By:Jamison Moss
[2018-05-13] MEDS ORDERED: NS(*) 0.9% 500 ML BAG 500 ML IV ONE (03:40)
--- NOTE | 2018-05-13 04:00 | EKG ---
FACILITY: [facility] PATIENT NAME: DAWN ASHLEY : [id number] MR: [id number] V: [id number] EXAM DATE: ORDERING PHYSICIAN: LIZ JACKSON TECHNOLOGIST: JOHANN Test Reason : ? LONG QRS Blood Pressure : / mmHG Vent. Rate : 068 BPM Atrial Rate : 092 BPM P-R Int : 000 ms QRS Dur : 086 ms QT Int : 450 ms P-R-T Axes : 000 020 035 degrees QTc Int : 478 ms Atrial fibrillation Abnormal ECG When compared with ECG of 13-MAY-2018 03:54, No significant change was found Confirmed by Jamison Santiago ([id number] on 05/13/2018 6:21:33 AM Referred By: Confirmed By:Jamison Moss
[2018-05-13] MEDS ORDERED: fentaNYL CITR 100 MCG/2 ML AMP IVP ONE (05:00)
[2018-05-13] MEDS ORDERED: ETOMIDATE 20 MG/10 ML VIAL IVP ONE (05:05)
[2018-05-13 05:25] VITALS: BP 107/70
--- NOTE | 2018-05-13 09:48 | EKG ---
FACILITY: [facility] PATIENT NAME: DAWN ASHLEY : [id number] MR: [id number] V: [id number] EXAM DATE: ORDERING PHYSICIAN: LIZ JACKSON TECHNOLOGIST: JOHANN Test Reason : S/P A FIB Blood Pressure : / mmHG Vent. Rate : 055 BPM Atrial Rate : 055 BPM P-R Int : 164 ms QRS Dur : 086 ms QT Int : 506 ms P-R-T Axes : 083 019 019 degrees QTc Int : [address] abnormality, possible digitalis effect Abnormal ECG When compared with ECG of 13-MAY-2018 03:55, Sinus rhythm has replaced Atrial fibrillation Confirmed by MUKESH FRAGOSO ([id number]) on 05/13/2018 4:45:41 PM Referred By: Confirmed By:MUKESH FRAGOSO
== END 2018-05-13 05:35 | disposition home or self-care (01) ==
LOC: ER 01:25
DX: I48.0 Paroxysmal atrial fibrillation (principal); Z79.01 Long term (current) use of anticoagulants
CPT/HCPCS: 83735; 84443; 85025; 93005; 96365; 96375; 99284; J2690; J3010; J7040; J7060; 82040; 82247; 82310; 82374; 82435; 82565; 82947; 84075; 84132; 84155; 84295; 84450; 84460; 84520

== ENCOUNTER → 2018-05-15 | Outpatient (REF) ==
[2016-09-16 13:04] VITALS: BMI 26.4
--- NOTE | 2018-05-15 09:44 | RADIOLOGY IMAGING REPORT ---
FACILITY: [facility] [place] PATIENT NAME: Jenae Burrows : 1955 MR: [id number] V: [id number] EXAM DATE: ORDERING PHYSICIAN: SANTIAGO HAWKINS TECHNOLOGIST: Location: [facility] Patient: Jenae Burrows : 1955 Visit/Account:[id number] Date of Sevice: 05/15/2018 PELVIC HISTORY: Postmenopausal bleeding TECHNIQUE: Transvaginal transabdominal ultrasound pelvis. COMPARISON: None. FINDINGS: Uterus: ; 7.94 cm length x 4 cm AP x 6.2 cm transverse. Myometrium: There are two uterine fibroids demonstrated. One is an intramural fibroid which is anter ior right lateral and fundal measuring 1.8 x 1.3 x 2 cm one is a submucosal towards the left effacing the endometrium measuring 2.2 x 1.9 x 2.6 cm and is partially calcified. Endometrium: Small amount of fluid is seen within the endometrial canal adjacent to the adjacent fibr oid.; double thickness 1.9 mm. Cervix: Nabothian cysts with internal debris. Ovaries: Right - 1.9 x 2.8 x 1.9 cm Left - 1.8 x 1.9 x 1.4 cm Blood flow is documented in each ovary by duplex Doppler ultrasound. Adnexa: Grossly unremarkable. Free pelvic fluid: None. IMPRESSION: There are two uterine fibroids as described above. The largest is submucosal on the left and is effa cing the endometrial canal measuring 2.6 in meters in maximum dimension Nabothian cyst with debris Small amount of endometrial fluid Atrophic appearing ovaries with slightly diminished blood flow bilaterally Report Dictated By: Clarissa Murphy MD at 05/15/2018 9:35 AM Report E-Signed By: Clarissa Murphy MD at 05/15/2018 9:40 AM WSN:[email or web address]
== END ==
LOC: US 02:33
PROVIDERS: ATTEND Family Medicine
DX: D25.0 Submucous leiomyoma of uterus (principal); N88.8 Other specified noninflammatory disorders of cervix uteri
CPT/HCPCS: 76830; 76856

== ENCOUNTER 2018-06-04 07:02 | Emergency (ER) | payer SELFPAY ==
[2016-09-16 13:04] VITALS: Wt 86.2 kg
--- NOTE | 2018-06-04 07:04 | ER Report ---
History and Physical Time Seen By MD: 07:04 HPI/ROS CHIEF COMPLAINT: Rapid heart rate history of A. fib RVR HISTORY OF PRESENT ILLNESS: Patient is a 63-year-old female here with complaints of lightheadedness, palpitations, rapid heart rate, hypertension the setting of A. fib RVR. Patient is on diltiazem by mouth at home and took a rapid release tab when she noticed having palpitations, rapid heart rate at approximately 545 this morning. She monitor her blood pressure and found that she was hypertensive and lightheaded prompting evaluation today. She has had a history of paroxysmal atrial fibrillation. Patient was noted to be in A. fib RVR at time of evaluation, alert and oriented, afebrile, hypertensive. Patient is in no acute distress. Denies recent illnesses, cough scolds, nausea, vomiting, abdominal pain. REVIEW OF SYSTEMS: Constitutional: No fever, no chills. Eyes: No discharge. ENT: No sore throat. Cardiovascular: + chest tightness, rapid hr, palpitations, lightheadedness Respiratory: No cough, + shortness of breath. Gastrointestinal: No abdominal pain, no vomiting. Genitourinary: No hematuria. Musculoskeletal: No back pain. Skin: No rashes. Neurological: + mild headache. Allergies: Coded Allergies: Sulfa (Sulfonamide Antibiotics) (Verified Allergy, Severe, Slufing of skin, 05/13/18) Penicillins (Verified Allergy, Unknown, ANAPHYLAXIS, 05/13/18) ALL "CILLINS" Tetracyclines (Verified Allergy, Unknown, ANAPHYLAXIS, 05/13/18) Home Meds Active Scripts Lorazepam (ATIVAN) 0.5 Mg Tablet, 0.5 MG PO Q6H PRN for ANXIETY, #10 TAB 0 Refills Prov:JG EDOUARD MD 05/11/18 Reported Medications Diltiazem Hcl (DILTIAZEM HCL) 120 Mg Tablet, 120 MG PO 06/04/18 Diltiazem HCl (Diltiazem ER) 180 Mg Tab.er.24h 06/04/18 Levothyroxine Sodium (LEVOTHYROXINE SODIUM) 50 Mcg Tablet, 25 MCG PO QODAY, TAB 05/11/18 Levothyroxine Sodium (LEVOTHYROXINE SODIUM) 50 Mcg Tablet, 50 MCG PO QDAY, TAB 05/11/18 Rivaroxaban 15 Mg (XARELTO 15 MG) 15 Mg Tablet, 15 MG PO DAILY, TAB 01/25/17 Discontinued Reported Medications Diltiazem Hcl (DILTIAZEM HCL) 120 Mg Tablet, 120 MG PO BID 05/11/18 Hx Smoking: No Smoking Status: Never Smoker Hx Substance Use Disorder: No Hx Alcohol Use: No Constitutional Vital Sign - Last 24 Hours 06/04/18 06/04/18 06/04/18 06/04/18 07:02 07:06 07:07 07:15 Pulse ??? 102 Resp 16 B/P (MAP) 164/145 164/145 (151) 141/106 (118) Pulse Ox 97 O2 Delivery Room Air 06/04/18 06/04/18 06/04/18 06/04/18 07:17 07:32 07:45 07:47 Pulse 100 120 102 Resp 7 13 7 B/P (MAP) 137/80 (99) Pulse Ox 100 98 99 06/04/18 06/04/18 06/04/18 06/04/18 08:02 08:15 08:30 08:45 Pulse 85 74 74 86 Resp 0 16 9 B/P (MAP) 133/97 (109) 97/78 (84) 135/92 (106) Pulse Ox 97 94 95 06/04/18 06/04/18 06/04/18 06/04/18 09:00 09:15 09:30 09:45 Pulse 77 86 78 87 Resp 8 9 12 10 B/P (MAP) 123/90 (101) 130/92 (105) 131/75 (93) 126/100 (109) Pulse Ox 100 96 98 99 06/04/18 06/04/18 06/04/18 06/04/18 10:00 10:15 10:30 10:45 Pulse 79 81 86 ??? Resp 19 8 7 9 B/P (MAP) 126/79 (95) 134/98 (110) 146/93 (110) 131/99 (110) Pulse Ox 100 100 100 91 06/04/18 06/04/18 06/04/18 06/04/18 11:00 11:15 11:30 11:40 Pulse ? Resp 15 7 0 B/P (MAP) 123/89 (100) 143/88 (106) 132/99 (110) 130/82 (98) Pulse Ox 93 96 98 06/04/18 06/04/18 06/04/18 06/04/18 11:45 11:50 12:00 12:10 Pulse 80 Resp 12 B/P (MAP) 109/83 (92) 143/107 (119) 139/105 (116) Pulse Ox 97 06/04/18 06/04/18 06/04/18 06/04/18 12:30 12:35 12:39 12:50 Pulse 90 ??? Resp 11 8 29 B/P (MAP) 138/124 (129) 153/108 (123) 168/109 (128) Pulse Ox 96 98 94 06/04/18 06/04/18 06/04/18 06/04/18 13:00 13:05 13:10 13:20 Pulse 60 ??? Resp 15 30 B/P (MAP) 163/111 (128) 175/97 (123) 166/98 (120) Pulse Ox 100 100 06/04/18 06/04/18 06/04/18 06/04/18 13:30 13:35 13:40 13:50 Pulse 56 ??? Resp 8 B/P (MAP) 143/100 (114) 118/99 (105) ???/??? (1665) Pulse Ox 100 06/04/18 14:00 B/P (MAP) ???/??? (1665) Physical Exam General Appearance: The patient is alert, has no immediate need for airway protection and no signs of toxicity. Eyes: Pupils equal and round no pallor or injection. ENT, Mouth: Mucous membranes are moist. Respiratory: There are no retractions, lungs are clear to auscultation. Cardiovascular: + rapid, irregular hr Gastrointestinal: Abdomen is soft and non tender, no masses, bowel sounds normal. Neurological: No focal deficits Skin: Warm and dry, no rashes. Musculoskeletal: Neck is supple non tender. Extremities are nontender, nonswollen and have full range of motion. DIFFERENTIAL DIAGNOSIS: After history and physical exam differential diagnosis was considered for A. fib RVR, SVT, infection, dehydration Medical Decision Making Data Points Result Diagram: 06/04/18 0731 06/04/18 0731 Laboratory Hematology Test 06/04/18 07:31 06/04/18 07:41 06/04/18 10:55 Red Blood Count 5.14 M/uL (4.17-5.56) Mean Corpuscular Volume 90.7 fL (80.0-96.0) Mean Corpuscular Hemoglobin 31.9 pg (26.0-33.0) Mean Corpuscular Hemoglobin Concent 35.2 g/dL (32.0-36.0) Red Cell Distribution Width 12.6 % (11.5-14.5) Mean Platelet Volume 9.3 fL (7.2-11.1) Neutrophils (%) (Auto) 33.1 % (39.4-72.5) Lymphocytes (%) (Auto) 48.7 % (17.6-49.6) Monocytes (%) (Auto) 16.9 % (4.1-12.4) Eosinophils (%) (Auto) 0.3 % (0.4-6.7) Basophils (%) (Auto) 1.0 % (0.3-1.4) Nucleated RBC Relative Count (auto) 0.1 /100WBC Neutrophils # (Auto) 1.1 K/uL (2.0-7.4) Lymphocytes # (Auto) 1.5 K/uL (1.3-3.6) Monocytes # (Auto) 0.5 K/uL (0.3-1.0) Eosinophils # (Auto) 0.0 K/uL (0.0-0.5) Basophils # (Auto) 0.0 K/uL (0.0-0.1) Nucleated RBC Absolute Count (auto) 0.00 K/uL Peripheral Blood Smear No Y/N Sodium Level 142 mmol/L (137-145) Potassium Level 3.6 mmol/L (3.5-5.0) Chloride Level 106 mmol/L (98-107) Carbon Dioxide Level 22 mmol/L (22-31) Blood Urea Nitrogen 12 mg/dl (7-18) Creatinine 0.90 mg/dl (0.52-1.04) Glomerular Filtration Rate Calc > 60.0 Random Glucose 98 mg/dl (75-110) Calcium Level 9.6 mg/dl (8.4-10.2) Total Bilirubin 0.5 mg/dl (0.2-1.3) Aspartate Amino Transf (AST/SGOT) 24 U/L (0-35) Alanine Aminotransferase (ALT/SGPT) 24 U/L (0-56) Alkaline Phosphatase 53 U/L (0-126) B-Type Natriuretic Peptide 40 pg/ml (0-100) Total Protein 8.2 g/dl (6.3-8.2) Albumin 4.4 g/dl (3.5-5.0) Thyroid Stimulating Hormone (TSH) 5.00 uIU/ml (0.46-4.68) Magnesium Level 2.3 mg/dl (1.7-2.2) Urine Color Yellow Urine Clarity Clear Urine pH 7.0 pH (4.8-9.5) Urine Specific [place] 1.009 Urine Protein Negative mg/dL (NEGATIVE) Urine Glucose (UA) Negative mg/dL (NEGATIVE) Urine Ketones Trace mg/dL (NEGATIVE) Urine Blood Negative (NEGATIVE) Urine Nitrite Negative (NEGATIVE) Urine Bilirubin Negative (NEGATIVE) Urine Urobilinogen Negative mg/dL (0.2-1.9) Urine Leukocyte Esterase Negative (NEGATIVE) Urine RBC <1 /HPF (0-2/HPF) Urine WBC <1 /HPF (0-5/HPF) Urine Squamous Epithelial Cells Few /LPF (</=FEW) Urine Bacteria Negative /HPF (NONE-FEW) Urine Mucus None /HPF (NONE-FEW) Chemistry Test 06/04/18 07:31 06/04/18 07:41 06/04/18 10:55 White Blood Count 3.2 k/uL (4.5-11.0) Red Blood Count 5.14 M/uL (4.17-5.56) Hemoglobin 16.4 g/dL (12.0-16.0) Hematocrit 46.6 % (34.0-47.0) Mean Corpuscular Volume 90.7 fL (80.0-96.0) Mean Corpuscular Hemoglobin 31.9 pg (26.0-33.0) Mean Corpuscular Hemoglobin Concent 35.2 g/dL (32.0-36.0) Red Cell Distribution Width 12.6 % (11.5-14.5) Platelet Count 141 K/uL (150-450) Mean Platelet Volume 9.3 fL (7.2-11.1) Neutrophils (%) (Auto) 33.1 % (39.4-72.5) Lymphocytes (%) (Auto) 48.7 % (17.6-49.6) Monocytes (%) (Auto) 16.9 % (4.1-12.4) Eosinophils (%) (Auto) 0.3 % (0.4-6.7) Basophils (%) (Auto) 1.0 % (0.3-1.4) Nucleated RBC Relative Count (auto) 0.1 /100WBC Neutrophils # (Auto) 1.1 K/uL (2.0-7.4) Lymphocytes # (Auto) 1.5 K/uL (1.3-3.6) Monocytes # (Auto) 0.5 K/uL (0.3-1.0) Eosinophils # (Auto) 0.0 K/uL (0.0-0.5) Basophils # (Auto) 0.0 K/uL (0.0-0.1) Nucleated RBC Absolute Count (auto) 0.00 K/uL Peripheral Blood Smear No Y/N Glomerular Filtration Rate Calc > 60.0 Calcium Level 9.6 mg/dl (8.4-10.2) Total Bilirubin 0.5 mg/dl (0.2-1.3) Aspartate Amino Transf (AST/SGOT) 24 U/L (0-35) Alanine Aminotransferase (ALT/SGPT) 24 U/L (0-56) Alkaline Phosphatase 53 U/L (0-126) B-Type Natriuretic Peptide 40 pg/ml (0-100) Total Protein 8.2 g/dl (6.3-8.2) Albumin 4.4 g/dl (3.5-5.0) Thyroid Stimulating Hormone (TSH) 5.00 uIU/ml (0.46-4.68) Magnesium Level 2.3 mg/dl (1.7-2.2) Urine Color Yellow Urine Clarity Clear Urine pH 7.0 pH (4.8-9.5) Urine Specific [place] 1.009 Urine Protein Negative mg/dL (NEGATIVE) Urine Glucose (UA) Negative mg/dL (NEGATIVE) Urine Ketones Trace mg/dL (NEGATIVE) Urine Blood Negative (NEGATIVE) Urine Nitrite Negative (NEGATIVE) Urine Bilirubin Negative (NEGATIVE) Urine Urobilinogen Negative mg/dL (0.2-1.9) Urine Leukocyte Esterase Negative (NEGATIVE) Urine RBC <1 /HPF (0-2/HPF) Urine WBC <1 /HPF (0-5/HPF) Urine Squamous Epithelial Cells Few /LPF (</=FEW) Urine Bacteria Negative /HPF (NONE-FEW) Urine Mucus None /HPF (NONE-FEW) Urinalysis Test 06/04/18 10:55 Urine Color Yellow Urine Clarity Clear Urine pH 7.0 pH (4.8-9.5) Urine Specific [place] 1.009 Urine Protein Negative mg/dL (NEGATIVE) Urine Glucose (UA) Negative mg/dL (NEGATIVE) Urine Ketones Trace mg/dL (NEGATIVE) Urine Blood Negative (NEGATIVE) Urine Nitrite Negative (NEGATIVE) Urine Bilirubin Negative (NEGATIVE) Urine Urobilinogen Negative mg/dL (0.2-1.9) Urine Leukocyte Esterase Negative (NEGATIVE) Urine RBC <1 /HPF (0-2/HPF) Urine WBC <1 /HPF (0-5/HPF) Urine Squamous Epithelial Cells Few /LPF (</=FEW) Urine Bacteria Negative /HPF (NONE-FEW) Urine Mucus None /HPF (NONE-FEW) EKG/Imaging EKG Interpretation 12 lead EKG: A. fib RVR, rate 1:30, QTC 491, no ischemic changes Rhythm: A. fib RVR [place]: normal QRS: normal Monitor Interpretation: Atrial Fibrillation ED Course/Re-evaluation ED Course Patient is a 63-year-old female here with complaints of A. fib RVR, rapid heart rate, shortness breath, lightheadedness. Patient denied chest x-ray. Patient was given IV fluid hydration, IV boluses of diltiazem 10 mg with incremental improvement of patient's heart rate and improvement in patient's hypertensive blood pressure. Patient did not convert into normal sinus rhythm and continued to be symptomatic so she was placed on IV diltiazem infusion which failed to convert the patient. Patient was found to be rate controlled 80 bpm with a blood pressure of 120/80 the patient maintained that she was symptomatic with shortness breath, dizziness, lightheadedness. Since the patient continued to be symptomatic, she was cardioverted using synchronized cardioversion and conscious sedation under etomidate with successful conversion into normal sinus rhythm. P keira remained in normal sinus rhythm and had improvement of her symptoms and was discharged in stable condition and advised to follow up with a automotive leasing sales representative for consideration of cardiac ablation. Procedure Synchronous cardioversion of atrial fibrillation was performed since patient reported being symptomatic with shortness breath, dizziness, lightheadedness, near syncopal episodes. Patient was preoxygenated using nasal cannula, [id number] was at the bedside with suction. Patient was given IV fluids for hydration. Consent for sedation and cardioversion was completed. I discussed the risks and benefits with the patient and she voiced understanding. Patient was given 10 mg of IV etomidate for sedation and the patient was shocked using synchronized cardioversion 200 J successfully into normal sinus rhythm with alleviation of patient's symptoms. Patient tolerated the procedure well and was hemodynamically stable after procedure. Patient was alert and oriented ambu latin without issues prior to discharge after procedure. Decision to Disposition Date: Jun 04, 2018 Decision to Disposition Time: 14:05 Depart Departure Latest Vital Signs Vital Signs Date Time Temp Pulse Resp B/P (MAP) Pulse Ox O2 Delivery O2 Flow Rate FiO2 06/04/18 14:00 ???/??? (1665) 06/04/18 13:50 ??? 06/04/18 13:35 8 100 06/04/18 07:06 Room Air Impression: Primary Impression: Paroxysmal atrial fibrillation with rapid ventricular response Condition: Improved Disposition: HOME OR SELF-CARE Referrals: SANTIAGO HAWKINS MD (PCP) Patient Instructions: A-fib (Atrial Fibrillation) (ED) Additional Instructions: Please follow-up with your family doctor and cardiology. Please return promptly if you develop recurrent shortness breath, palpitations, lightheadedness, chest pain, fevers, abdominal pain, nausea or vomiting. Please continue current medications as prescribed FROYLAN VANCE DO Jun 04, 2018 07:04
[2018-06-04] MEDS ORDERED: NS(*) 0.9% 1000 ML BAG 1,000 ML IV ONE (07:16)
[2018-06-04] MEDS ORDERED: DILT180T (07:17)
[2018-06-04] MEDS ORDERED: DILT120T13 PO (07:17)
[2018-06-04] MEDS ORDERED: DILTIAZEM 5 MG/ML 5ML IVPUSH IVP ONE (07:20)
--- NOTE | 2018-06-04 07:27 | EKG ---
FACILITY: [facility] PATIENT NAME: DAWN ASHLEY : [id number] MR: [id number] V: [id number] EXAM DATE: ORDERING PHYSICIAN: FROYLAN VANCE TECHNOLOGIST: ANCA Test Reason : BLURRED VISION Blood Pressure : / mmHG Vent. Rate : 130 BPM Atrial Rate : 147 BPM P-R Int : 000 ms QRS Dur : 080 ms QT Int : 334 ms P-R-T Axes : 000 015 195 degrees QTc Int : 491 ms Atrial fibrillation with rapid ventricular response Nonspecific ST and T wave abnormality Abnormal ECG When compared with ECG of 13-MAY-2018 05:13, Atrial fibrillation has replaced Sinus rhythm Vent. rate has increased BY 75 BPM Nonspecific T wave abnormality now evident in Lateral leads Confirmed by VENKAT ROACH ([id number]) on 06/04/2018 8:40:39 PM Referred By: Confirmed By:VENKAT ROACH
[2018-06-04] MEDS: DILTIAZEM 5 MG/ML 5ML IVPUSH IVP PRN ×4 (07:42→09:00)
[2018-06-04 07:51] LABS: PLATELET COUNT, AUTOMATED 141 K/uL (150-450)
[2018-06-04] MEDS ORDERED: DILTIAZEM HCL* 100 MG ADDVIAL 100 MG in NS(*) 0.9% 100 ML ADDVANT BAG 100 ML IV SCH (10:15)
[2018-06-04] MEDS ORDERED: DILTIAZEM(*) 5 MG/ML 5ML IVP 125 MG in NS(*) 0.9% 100 ML BAG 100 ML IV SCH (10:25)
[2018-06-04] MEDS ORDERED: ETOMIDATE 20 MG/10 ML VIAL IVP ONE (12:25)
--- NOTE | 2018-06-04 14:19 | EKG ---
FACILITY: [facility] PATIENT NAME: DAWN ASHLEY : [id number] MR: [id number] V: [id number] EXAM DATE: ORDERING PHYSICIAN: FROYLAN VANCE TECHNOLOGIST: ANCA Test Reason : POST CARDIOVERSION Blood Pressure : / mmHG Vent. Rate : 072 BPM Atrial Rate : 072 BPM P-R Int : 170 ms QRS Dur : 082 ms QT Int : 460 ms P-R-T Axes : 074 000 029 degrees QTc Int : 503 ms Sinus rhythm with premature atrial complexes vs atrial fibrillation run Nonspecific ST and T wave abnormality Prolonged QT Abnormal ECG When compared with ECG of 04-JUN-2018 07:19, Sinus rhythm has replaced Atrial fibrillation Vent. rate has decreased BY 58 BPM Nonspecific T wave abnormality, improved in Inferior leads Confirmed by VENKAT ROACH ([id number]) on 06/04/2018 8:46:42 PM Referred By: Confirmed By:VENKAT ROACH
== END 2018-06-04 14:05 | disposition home or self-care (01) ==
LOC: ER 07:05
DX: I48.0 Paroxysmal atrial fibrillation (principal); R06.02 Shortness of breath
CPT/HCPCS: 36415; 81001; 83735; 83880; 84443; 85025; 92960; 93005; 96361; 96365; 96366; 96375; 96376; 99285; J3490; J7030; J7050; 82040; 82247; 82310; 82374; 82435; 82565; 82947; 84075; 84132; 84155; 84295; 84450; 84460; 84520

== ENCOUNTER 2018-06-11 04:15 | Emergency (ER) | payer SELFPAY ==
[2016-09-16 13:04] VITALS: Wt 86.2 kg
[~2018-06-11 04:15] MED LIST changes: +DILT180T
[2018-06-11] MEDS ORDERED: NS(*) 0.9% 1000 ML BAG 1,000 ML IV ONE ×2 (04:25→06:15)
[2018-06-11] MEDS ORDERED: DILTIAZEM 5 MG/ML 5ML IVPUSH IVP ONE ×2 (04:25→04:50)
--- NOTE | 2018-06-11 04:40 | ER Report ---
History and Physical Time Seen By MD: 04:19 Hx. of Stated Complaint: WOKE UP ABOUT 3:30 WITHA BIG THUMP IN HER CHEST. DIXXY, SOB, HX OF AFIB HPI/ROS CHIEF COMPLAINT: I'm in A. fib HISTORY OF PRESENT ILLNESS: 63-year-old female with recurrent history of paroxysmal atrial fibrillation. She was seen on May 13 and June 04 with similar presentation. She dates back to many, many months. She is followed by cardiology, who recently increased her diazepam to 120, motor grams extended relief with immediate release 30 mg tablets to take for breakthrough palpitations. She is on Xarelto. Night. She is having a significant headache. She has a history of a stroke 2 years ago. She admits that she does get headaches but not this severe. Patient states shortness of breath, dizziness. She denies chest pain, but notes some chest tightness. He denies diaphoresis or nausea. REVIEW OF SYSTEMS: Respiratory: As above Cardiovascular: As above Gastrointestinal: No vomiting, no abdominal pain. Musculoskeletal: No back pain. Allergies: Coded Allergies: Sulfa (Sulfonamide Antibiotics) (Verified Allergy, Severe, Slufing of skin, 06/11/18) Penicillins (Verified Allergy, Unknown, ANAPHYLAXIS, 06/11/18) ALL "CILLINS" Tetracyclines (Verified Allergy, Unknown, ANAPHYLAXIS, 06/11/18) Home Meds Active Scripts Lorazepam (ATIVAN) 0.5 Mg Tablet, 0.5 MG PO Q6H PRN for ANXIETY, #10 TAB 0 Refills Prov:JG EDOUARD MD 05/11/18 Reported Medications Diltiazem Hcl (DILTIAZEM HCL) 120 Mg Tablet, 120 MG PO 06/04/18 Diltiazem HCl (Diltiazem ER) 180 Mg Tab.er.24h 06/04/18 Levothyroxine Sodium (LEVOTHYROXINE SODIUM) 50 Mcg Tablet, 25 MCG PO QODAY, TAB 05/11/18 Levothyroxine Sodium (LEVOTHYROXINE SODIUM) 50 Mcg Tablet, 50 MCG PO QDAY, TAB 05/11/18 Rivaroxaban 15 Mg (XARELTO 15 MG) 15 Mg Tablet, 15 MG PO DAILY, TAB 01/25/17 Hx Smoking: No Smoking Status: Never Smoker Hx Substance Use Disorder: No Hx Alcohol Use: No Constitutional Vital Sign - Last 24 Hours 06/11/18 06/11/18 06/11/18 06/11/18 04:18 04:21 04:25 04:30 Temp 97.9 Pulse 135 138 116 Resp 20 10 44 B/P (MAP) 126/115 126/115 (119) 115/85 (95) Pulse Ox 97 99 99 O2 Delivery Room Air 06/11/18 06/11/18 06/11/18 06/11/18 04:35 04:40 04:45 04:45 Pulse 129 101 109 Resp 14 7 18 Pulse Ox 99 100 100 O2 Flow Rate 2.0 06/11/18 06/11/18 06/11/18 06/11/18 04:50 04:55 05:00 05:05 Pulse 110 ??? 102 ??? Resp 10 10 B/P (MAP) 128/69 (88) Pulse Ox 99 96 06/11/18 06/11/18 06/11/18 06/11/18 05:10 05:15 05:20 05:25 Pulse ? 92 78 Resp 10 12 06/11/18 06/11/18 06/11/18 06/11/18 05:30 05:35 05:40 05:41 Pulse 89 ? Resp 5 11 B/P (MAP) 137/103 (114) 06/11/18 06/11/18 06/11/18 06/11/18 05:45 05:50 05:54 05:55 Pulse 104 95 83 Resp 9 0 B/P (MAP) 123/98 (106) 124/89 (101) Pulse Ox 100 06/11/18 06/11/18 06/11/18 06/11/18 05:58 06:00 06:04 06:05 Pulse 67 61 Resp 8 8 B/P (MAP) 153/94 (113) 156/93 (114) 149/87 (107) Pulse Ox 96 100 06/11/18 06/11/18 06/11/18 06/11/18 06:10 06:15 06:20 06:30 Pulse ??? 59 58 56 Resp 6 7 10 7 B/P (MAP) 137/94 (108) 122/90 (101) Pulse Ox 99 99 100 86 06/11/18 06/11/18 06/11/18 06/11/18 06:35 06:40 06:45 06:50 Pulse 58 58 58 Resp 5 8 10 B/P (MAP) 143/92 (109) Pulse Ox 99 100 100 Physical Exam Vital signs stable, tachycardia, RVR on the monitor with atrial fibrillation noted. Pulse ox normal General Appearance: The patient is alert, has no immediate need for airway protection and no current signs of toxicity. Slightly pale appearing, skin warm and dry, moderate distress, appears fatigued, tired and weak. HEENT: Pupils equal and round no injection. Oropharynx without redness or exudate, mucous. Membranes are moist Respiratory: Chest is non tender, lungs are clear to auscultation. Cardiac: Irregular, irregular heart sounds without murmur Gastrointestinal: Abdomen is soft and non tender, no masses, bowel sounds normal. Musculoskeletal: Neck: Neck is supple and non tender. No JVD, no lymphadenopathy, no thyromegaly Extremities have full range of motion and are non tender. No edema, no calf tenderness Skin: No rashes or lesions. DIFFERENTIAL DIAGNOSIS: After history and physical exam differential diagnosis was considered for chest pain including but not limited to myocardial ischemia, pericarditis pulmonary embolus, chest wall pain, pleural inflammation and pulmonary infectious causes. Additionally,shortness of breath including but not limited to pulmonary infectious process, COPD, asthma, pulmonary embolus and congestive heart failure. Medical Decision Making Data Points Result Diagram: 06/11/18 0430 06/11/18 0525 Laboratory Hematology Test 06/11/18 04:30 06/11/18 05:25 Red Blood Count 5.01 M/uL (4.17-5.56) Mean Corpuscular Volume 91.6 fL (80.0-96.0) Mean Corpuscular Hemoglobin 32.0 pg (26.0-33.0) Mean Corpuscular Hemoglobin Concent 35.0 g/dL (32.0-36.0) Red Cell Distribution Width 12.6 % (11.5-14.5) Mean Platelet Volume 10.0 fL (7.2-11.1) Neutrophils (%) (Auto) 29.9 % (39.4-72.5) Lymphocytes (%) (Auto) 50.9 % (17.6-49.6) Monocytes (%) (Auto) 17.7 % (4.1-12.4) Eosinophils (%) (Auto) 0.4 % (0.4-6.7) Basophils (%) (Auto) 1.1 % (0.3-1.4) Nucleated RBC Relative Count (auto) 0.1 /100WBC Neutrophils # (Auto) 1.3 K/uL (2.0-7.4) Lymphocytes # (Auto) 2.1 K/uL (1.3-3.6) Monocytes # (Auto) 0.7 K/uL (0.3-1.0) Eosinophils # (Auto) 0.0 K/uL (0.0-0.5) Basophils # (Auto) 0.0 K/uL (0.0-0.1) Nucleated RBC Absolute Count (auto) 0.01 K/uL B-Type Natriuretic Peptide 70 pg/ml (0-100) Sodium Level 142 mmol/L (137-145) Potassium Level 4.2 mmol/L (3.5-5.0) Chloride Level 107 mmol/L (98-107) Carbon Dioxide Level 28 mmol/L (22-31) Blood Urea Nitrogen 13 mg/dl (7-18) Creatinine 1.00 mg/dl (0.52-1.04) Glomerular Filtration Rate Calc 55.8 Random Glucose 95 mg/dl (75-110) Calcium Level 9.7 mg/dl (8.4-10.2) Total Bilirubin 0.4 mg/dl (0.2-1.3) Aspartate Amino Transf (AST/SGOT) 25 U/L (0-35) Alanine Aminotransferase (ALT/SGPT) 29 U/L (0-56) Alkaline Phosphatase 60 U/L (0-126) Troponin I < 0.012 ng/ml Total Protein 7.8 g/dl (6.3-8.2) Albumin 4.2 g/dl (3.5-5.0) Chemistry Test 06/11/18 04:30 06/11/18 05:25 White Blood Count 4.2 k/uL (4.5-11.0) Red Blood Count 5.01 M/uL (4.17-5.56) Hemoglobin 16.1 g/dL (12.0-16.0) Hematocrit 45.9 % (34.0-47.0) Mean Corpuscular Volume 91.6 fL (80.0-96.0) Mean Corpuscular Hemoglobin 32.0 pg (26.0-33.0) Mean Corpuscular Hemoglobin Concent 35.0 g/dL (32.0-36.0) Red Cell Distribution Width 12.6 % (11.5-14.5) Platelet Count 157 K/uL (150-450) Mean Platelet Volume 10.0 fL (7.2-11.1) Neutrophils (%) (Auto) 29.9 % (39.4-72.5) Lymphocytes (%) (Auto) 50.9 % (17.6-49.6) Monocytes (%) (Auto) 17.7 % (4.1-12.4) Eosinophils (%) (Auto) 0.4 % (0.4-6.7) Basophils (%) (Auto) 1.1 % (0.3-1.4) Nucleated RBC Relative Count (auto) 0.1 /100WBC Neutrophils # (Auto) 1.3 K/uL (2.0-7.4) Lymphocytes # (Auto) 2.1 K/uL (1.3-3.6) Monocytes # (Auto) 0.7 K/uL (0.3-1.0) Eosinophils # (Auto) 0.0 K/uL (0.0-0.5) Basophils # (Auto) 0.0 K/uL (0.0-0.1) Nucleated RBC Absolute Count (auto) 0.01 K/uL B-Type Natriuretic Peptide 70 pg/ml (0-100) Glomerular Filtration Rate Calc 55.8 Calcium Level 9.7 mg/dl (8.4-10.2) Total Bilirubin 0.4 mg/dl (0.2-1.3) Aspartate Amino Transf (AST/SGOT) 25 U/L (0-35) Alanine Aminotransferase (ALT/SGPT) 29 U/L (0-56) Alkaline Phosphatase 60 U/L (0-126) Troponin I < 0.012 ng/ml Total Protein 7.8 g/dl (6.3-8.2) Albumin 4.2 g/dl (3.5-5.0) EKG/Imaging EKG Interpretation 12 lead EK Rhythm: Atrial fibrillation with rapid ventricular response, rate in the 140s [place]: normal QRS: normal ST segments: Nonspecific ST and T-wave changes, comparison to previous EKG dated 06/04/18, no significant change 12 lead EK Rhythm: normal sinus rhythm at a rate of 60 bpm [place]: normal QRS: normal ST segments: normal, comparison to previous EKG from several hours earlier cardioversion, successful. Imaging Results: CT scan of the head without contrast was obtained. The results of the study are no acute findings, 2 old CVAs noted. The study was read by the radiologist. I viewed the images myself on the PACS system. ED Course/Re-evaluation Clinical Indication for ER IV: Hydration, IV Access ED Course Patient was admitted to an examination room. H&P was done. The differential diagnoses was considered. On clinical examination. Patient has atrial fibrillation with rapid ventricular response. She has very poor cardiac output remains symptomatically 1. Her rate is controlled with diltiazem IV. She took 30 motor grams at home. She received 30 mg IV here. Her rate was into the 80s but still having near-syncopal symptoms with standing and ambulated to the bathroom. Patient's had several previous elective cardioversions. Patient agreeable and understands the risks and benefits. Patient was given etomidate 10 mg IV. She was closely monitored by respiratory therapy. Patient underwent electrocardioversion. He also much better with normal sinus rhythm at 60 bpm. EKG was performed documented rhythm. She is advised to follow-up with her customer account specialist. She is advised to increase her diltiazem to 120 mg twice daily. Procedure: Procedural sedation. A pre-sedation evaluation was completed on the patient at 0550. Patient is an appropriate candidate for procedural sedation. The risks of the sedation were discussed with the patient. 0601 The patient was reevaluated immediately prior to initiation of sedation. The patient was sedated with etomidate 10 mg IV. The patient was monitored with continuous pulse oximetry and bus monitor. There were no complications and no significant hypoxemia. I remained at the bedside for the sedation. The total time I spent in the procedural sedation was 20 minutes. Post sedation evaluation: Patient was alert and cooperative, hemodynamically stable with appropriate respiratory status, temperature and pain control without ongoing nausea and vomiting. Procedure: Elective electrical cardioversion. The patient was electively electrically cardioverted for atrial fibrillation . The patient was on a continuous quality assurance monitor body, with airway equipment at the bedside. The patient was on continuous pulse oximetry. The cardioversion was attempted with 200 joules biphasic current. 2. The cardioversion was successful. The patient tolerated the procedure well with no complications. The procedure was performed by myself. Decision to Disposition Date: Jun 11, 2018 Decision to Disposition Time: 06:16 Depart Departure Latest Vital Signs Vital Signs Date Time Temp Pulse Resp B/P (MAP) Pulse Ox O2 Delivery O2 Flow Rate FiO2 06/11/18 06:50 58 10 100 06/11/18 06:45 143/92 (109) 06/11/18 04:45 2.0 06/11/18 04:18 97.9 Room Air Impression: Primary Impression: Paroxysmal atrial fibrillation with rapid ventricular response Additional Impression: Headache Condition: Improved Disposition: HOME OR SELF-CARE Referrals: SANTIAGO HAWKINS MD (PCP) Patient Instructions: A-fib (Atrial Fibrillation) (ED) Additional Instructions: follow up with cardiology start taking diltiazem 120 mg ER twice daily Problem Qualifiers Additional Impression: Headache Headache type: unspecified Headache chronicity pattern: acute headache Intractability: intractable Qualified Codes: R51 - Headache ANURADHA KURTZ DO Jun 11, 2018 04:40
[2018-06-11 04:53] LABS: PLATELET COUNT, AUTOMATED 157 K/uL (150-450)
[2018-06-11] MEDS ORDERED: ETOMIDATE 20 MG/10 ML VIAL IVP ONE (05:45)
[2018-06-11] MEDS ORDERED: ETOMIDATE 20 MG/10 ML VIAL ONE (05:47)
--- NOTE | 2018-06-11 05:52 | RADIOLOGY IMAGING REPORT ---
FACILITY: [facility] - [place] PATIENT NAME: Jenae Burrows : 1955 MR: [id number] V: [id number] EXAM DATE: ORDERING PHYSICIAN: ANURADHA KURTZ TECHNOLOGIST: Location: [facility] Patient: Jenae Burrows : 1955 Visit/Account:[id number] Date of Sevice: 06/11/2018 HEAD W/O CONTRAST HISTORY: Severe headache. On Xarelto. Paroxysmal atrial fibrillation. COMPARISON: 04/25/2016 brain MR. TECHNIQUE: Axial images were obtained from the skull base to the vertex without contrast. Sagittal an d coronal reformats were performed. One of the following dose optimization techniques was utilized in the performance of this exam: Autom ated exposure control; adjustment of the mA and/or kV according to the patient's size; or use of an i terative reconstruction technique. Specific details can be referenced in the facility's radiology CT exam operational policy. CONTRAST: None. FINDINGS: Brain: No intracranial hemorrhage, mass, or edema. There is a large area of encephalomalacia in the r ight MCA territory involving the right temporal and parietal lobes, corresponding to an infarct that was acute in 2016. There is encephalomalacia of the left frontal lobe, unchanged from previous MR, li medhat chronic infarct. There is an enlarged partially empty sella, unchanged. Ventricles and sulci: Sulci are normal. Ventricular size and configuration is normal. 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 No fracture. Paranasal sinuses and mastoids: There is mild mucosal thickening of the right maxillary sinus. There are bilateral maxillary sinus mucus retention pseudocysts. Mastoids are clear. Orbits and soft tissues: Normal. IMPRESSION: 1. No acute intracranial abnormality. 2. Mild sinus disease. Report Dictated By: Lakeshia Ortiz at 06/11/2018 5:36 AM Report E-Signed By: Lakeshia Ortiz at 06/11/2018 5:47 AM WSN:[id number]
--- NOTE | 2018-06-11 06:20 | EKG ---
FACILITY: [facility] - [place] PATIENT NAME: DAWN ASHLEY : [id number] MR: [id number] V: [id number] EXAM DATE: ORDERING PHYSICIAN: ANURADHA KURTZ TECHNOLOGIST: QUINCY Test Reason : A FIB Blood Pressure : / mmHG Vent. Rate : 143 BPM Atrial Rate : 166 BPM P-R Int : 000 ms QRS Dur : 084 ms QT Int : 318 ms P-R-T Axes : 000 013 206 degrees QTc Int : 490 ms Atrial fibrillation with rapid ventricular response ST and T wave abnormality, consider lateral ischemia or digitalis effect Abnormal ECG When compared with ECG of 04-JUN-2018 13:06, Atrial fibrillation has replaced Sinus rhythm Vent. rate has increased BY 71 BPM T wave inversion now evident in Lateral leads Confirmed by VENKAT ROACH ([id number]) on 06/11/2018 6:50:52 AM Referred By: JERARDO Confirmed By:VENKAT ROACH
--- NOTE | 2018-06-11 06:26 | EKG ---
FACILITY: [facility] - [place] PATIENT NAME: DAWN ASHLEY : [id number] MR: [id number] V: [id number] EXAM DATE: ORDERING PHYSICIAN: ANURADHA KURTZ TECHNOLOGIST: QUINCY Test Reason : A FIB Blood Pressure : / mmHG Vent. Rate : 061 BPM Atrial Rate : 061 BPM P-R Int : 170 ms QRS Dur : 088 ms QT Int : 428 ms P-R-T Axes : 075 014 014 degrees QTc Int : 430 ms Sinus rhythm with premature supraventricular complexes Nonspecific T wave abnormality Abnormal ECG When compared with ECG of 11-JUN-2018 04:31, Sinus rhythm has replaced Atrial fibrillation Vent. rate has decreased BY [address] no longer depressed in Anterior leads T wave inversion no longer evident in Lateral leads Confirmed by VENKAT ROACH ([id number]) on 06/11/2018 6:51:33 AM Referred By: JERARDO Confirmed By:VENKAT ROACH
[2018-06-11 06:45] VITALS: BP 143/92
== END 2018-06-11 07:00 | disposition home or self-care (01) ==
LOC: ER 04:17
DX: I48.0 Paroxysmal atrial fibrillation (principal); Z79.01 Long term (current) use of anticoagulants; R51 Headache
CPT/HCPCS: 36415; 70450; 83880; 84484; 85025; 92960; 93005; 96361; 96374; 96375; 96376; 99152; 99285; J3490; J7030; 82040; 82247; 82310; 82374; 82435; 82565; 82947; 84075; 84132; 84155; 84295; 84450; 84460; 84520

== ENCOUNTER 2018-07-06 10:41 | Emergency (ER) | payer SELFPAY ==
[2016-09-16 13:04] VITALS: Wt 86.2 kg
--- NOTE | 2018-07-06 10:56 | ER Report ---
History and Physical Time Seen By MD: 10:57 Hx. of Stated Complaint: pt woke up 330 am feeling in afib, took cardizem and no changes. sob. (DENIS WHITMAN MD) Time Seen By MD: 11:14 (TIMUR PAREKH [facility]-) HPI/ROS CHIEF COMPLAINT: Shortness of breath HISTORY OF PRESENT ILLNESS: This is a 63-year-old female presents to emergency department for A. fib and mild shortness of breath. Patient states that when she woke up this morning she felt short of breath, checked her blood pressure and pulse noted that she was in atrial fibrillation, didn't take her normal diltiazem and immediate release as well, normally she is in normal sinus rhythm, she's had several episodes of A. fib in the past, is on Xarelto for pulmonary emboli secondary to A. fib. She states that after taking diltiazem, her shortness of breath is improved. She denies fevers or chills. No nausea or vomiting. No visual changes. No headaches rashes. REVIEW OF SYSTEMS: Constitutional: No fever, no chills. Eyes: No discharge. ENT: No sore throat. Cardiovascular: No chest pain, no palpitations. Respiratory: As above. Gastrointestinal: No abdominal pain, no vomiting. Genitourinary: No hematuria. Musculoskeletal: No back pain. Skin: No rashes. Neurological: No headache. (TIMUR PAREKH [facility]-) Allergies: Coded Allergies: Sulfa (Sulfonamide Antibiotics) (Verified Allergy, Severe, Slufing of skin, 06/11/18) Penicillins (Verified Allergy, Unknown, ANAPHYLAXIS, 06/11/18) ALL "CILLINS" Tetracyclines (Verified Allergy, Unknown, ANAPHYLAXIS, 06/11/18) Home Meds Active Scripts Lorazepam (ATIVAN) 0.5 Mg Tablet, 0.5 MG PO Q6H PRN for ANXIETY, #10 TAB 0 Refills Prov:JG EDOUARD MD 05/11/18 Reported Medications Magnesium Hydroxide (MILK OF MAGNESIA) 400 Mg/5 Ml Oral.susp, 150 MG PO 3XW, BOTTLE 07/06/18 Diltiazem Hcl (DILTIAZEM HCL) 120 Mg Tablet, 120 MG PO 06/04/18 Diltiazem HCl (Diltiazem ER) 180 Mg Tab.er.24h 06/04/18 Levothyroxine Sodium (LEVOTHYROXINE SODIUM) 50 Mcg Tablet, 25 MCG PO QODAY, TAB 05/11/18 Levothyroxine Sodium (LEVOTHYROXINE SODIUM) 50 Mcg Tablet, 50 MCG PO QDAY, TAB 05/11/18 Rivaroxaban 15 Mg (XARELTO 15 MG) 15 Mg Tablet, 15 MG PO DAILY, TAB 01/25/17 Past Medical/Surgical History The patient has a past medical and surgical history of CVA, intermittent atrial fibrillation, hypertension, pulmonary emboli, asthma, pneumonia, spastic esophagus, GERD, thumb fracture, hypothyroidism, Tahira's anxiety, depression, D&C, tonsillectomy. Multiple cardioversions. (TIMUR PAREKH[facility]) Reviewed Nurses Notes: Yes (TIMUR PAREKH-[facility]) Hx Smoking: No Smoking Status: Never Smoker Hx Substance Use Disorder: No Hx Alcohol Use: No (DENIS WHITMAN MD) Constitutional Vital Sign - Last 24 Hours 07/06/18 07/06/18 07/06/18 07/06/18 10:46 10:50 11:00 11:11 Temp 98.1 Pulse 112 92 Resp 20 7 B/P (MAP) 147/98 147/98 (114) 128/92 (104) Pulse Ox 96 93 O2 Delivery Room Air 07/06/18 07/06/18 07/06/18 07/06/18 11:15 11:30 11:41 11:45 Pulse 91 Resp 13 B/P (MAP) 142/100 (114) 140/96 (111) 137/107 (117) Pulse Ox 94 07/06/18 07/06/18 07/06/18 07/06/18 12:11 12:15 12:20 12:34 Pulse 103 89 Resp 12 12 B/P (MAP) 146/104 (118) 151/100 (117) Pulse Ox 98 96 07/06/18 07/06/18 07/06/18 07/06/18 12:35 12:50 13:00 13:05 Pulse 90 92 108 Resp 13 15 23 B/P (MAP) 152/94 (113) Pulse Ox 97 95 92 07/06/18 07/06/18 07/06/18 07/06/18 13:14 13:20 13:29 13:33 Pulse 85 Resp 30 B/P (MAP) 137/85 (102) 116/98 (104) 138/87 (104) Pulse Ox 99 07/06/18 07/06/18 07/06/18 07/06/18 13:35 13:45 13:50 14:00 Pulse 60 54 Resp 10 11 B/P (MAP) 134/82 (99) 142/85 (104) Pulse Ox 97 97 07/06/18 07/06/18 07/06/18 07/06/18 14:05 14:15 14:20 14:25 Pulse 55 59 62 Resp 11 20 25 B/P (MAP) 144/91 (108) Pulse Ox 99 99 98 07/06/18 07/06/18 14:30 14:35 Pulse 54 58 Resp 7 38 B/P (MAP) 133/84 (100) Pulse Ox 98 99 Intake and Output0 07/06/18 07/06/18 07/07/18 14:58 22:58 06:58 Intake Total 1050 ml Balance 1050 ml (TIMUR PAREKH [facility]) Physical Exam General Appearance: The patient is alert, has no immediate need for airway protection and no signs of toxicity. Eyes: Pupils equal and round no pallor or injection. ENT, Mouth: Mucous membranes are moist. Respiratory: There are no retractions, lungs are clear to auscultation. Cardiovascular: Irregular rate and rhythm, no murmurs, clicks or rubs. Gastrointestinal: Abdomen is soft and non tender, no masses, bowel sounds normal. Neurological: Alert and oriented 4. Moving all tremors. Following. No focal n eurologic deficits. Skin: Warm and dry, no rashes. Musculoskeletal: Neck is supple non tender. Extremities are nontender, nonswollen and have full range of motion. DIFFERENTIAL DIAGNOSIS: After history and physical exam differential diagnosis was considered shortness of breath including but not limited to pulmonary infectious process, COPD, asthma, pulmonary embolus and congestive heart fa ilure. (TIMUR PAREKHP-[facility]) Medical Decision Making Data Points Result Diagram: 07/06/18 1110 07/06/18 1110 Laboratory Hematology Test 07/06/18 11:10 Red Blood Count 5.02 M/uL (4.17-5.56) Mean Corpuscular Volume 89.6 fL (80.0-96.0) Mean Corpuscular Hemoglobin 31.5 pg (26.0-33.0) Mean Corpuscular Hemoglobin Concent 35.2 g/dL (32.0-36.0) Red Cell Distribution Width 12.7 % (11.5-14.5) Mean Platelet Volume 9.6 fL (7.2-11.1) Neutrophils (%) (Auto) 47.1 % (39.4-72.5) Lymphocytes (%) (Auto) 36.3 % (17.6-49.6) Monocytes (%) (Auto) 14.8 % (4.1-12.4) Eosinophils (%) (Auto) 0.5 % (0.4-6.7) Basophils (%) (Auto) 1.3 % (0.3-1.4) Nucleated RBC Relative Count (auto) 0.1 /100WBC Neutrophils # (Auto) 1.7 K/uL (2.0-7.4) Lymphocytes # (Auto) 1.3 K/uL (1.3-3.6) Monocytes # (Auto) 0.5 K/uL (0.3-1.0) Eosinophils # (Auto) 0.0 K/uL (0.0-0.5) Basophils # (Auto) 0.0 K/uL (0.0-0.1) Nucleated RBC Absolute Count (auto) 0.00 K/uL Sodium Level 141 mmol/L (137-145) Potassium Level 4.1 mmol/L (3.5-5.0) Chloride Level 108 mmol/L (98-107) Carbon Dioxide Level 23 mmol/L (22-31) Blood Urea Nitrogen 11 mg/dl (7-18) Creatinine 0.80 mg/dl (0.52-1.04) Glomerular Filtration Rate Calc > 60.0 Random Glucose 92 mg/dl (75-110) Calcium Level 9.8 mg/dl (8.4-10.2) Magnesium Level 2.4 mg/dl (1.7-2.2) Total Bilirubin 0.7 mg/dl (0.2-1.3) Aspartate Amino Transf (AST/SGOT) 30 U/L (0-35) Alanine Aminotransferase (ALT/SGPT) 25 U/L (0-56) Alkaline Phosphatase 61 U/L (0-126) Troponin I < 0.012 ng/ml Total Protein 8.5 g/dl (6.3-8.2) Albumin 4.7 g/dl (3.5-5.0) Chemistry Test 07/06/18 11:10 White Blood Count 3.5 k/uL (4.5-11.0) Red Blood Count 5.02 M/uL (4.17-5.56) Hemoglobin 15.8 g/dL (12.0-16.0) Hematocrit 45.0 % (34.0-47.0) Mean Corpuscular Volume 89.6 fL (80.0-96.0) Mean Corpuscular Hemoglobin 31.5 pg (26.0-33.0) Mean Corpuscular Hemoglobin Concent 35.2 g/dL (32.0-36.0) Red Cell Distribution Width 12.7 % (11.5-14.5) Platelet Count 169 K/uL (150-450) Mean Platelet Volume 9.6 fL (7.2-11.1) Neutrophils (%) (Auto) 47.1 % (39.4-72.5) Lymphocytes (%) (Auto) 36.3 % (17.6-49.6) Monocytes (%) (Auto) 14.8 % (4.1-12.4) Eosinophils (%) (Auto) 0.5 % (0.4-6.7) Basophils (%) (Auto) 1.3 % (0.3-1.4) Nucleated RBC Relative Count (auto) 0.1 /100WBC Neutrophils # (Auto) 1.7 K/uL (2.0-7.4) Lymphocytes # (Auto) 1.3 K/uL (1.3-3.6) Monocytes # (Auto) 0.5 K/uL (0.3-1.0) Eosinophils # (Auto) 0.0 K/uL (0.0-0.5) Basophils # (Auto) 0.0 K/uL (0.0-0.1) Nucleated RBC Absolute Count (auto) 0.00 K/uL Glomerular Filtration Rate Calc > 60.0 Calcium Level 9.8 mg/dl (8.4-10.2) Magnesium Level 2.4 mg/dl (1.7-2.2) Total Bilirubin 0.7 mg/dl (0.2-1.3) Aspartate Amino Transf (AST/SGOT) 30 U/L (0-35) Alanine Aminotransferase (ALT/SGPT) 25 U/L (0-56) Alkaline Phosphatase 61 U/L (0-126) Troponin I < 0.012 ng/ml Total Protein 8.5 g/dl (6.3-8.2) Albumin 4.7 g/dl (3.5-5.0) ([facility] PAREKH [facility]) EKG/Imaging EKG Interpretation 12 lead EKG: Time of EKG 1055. Rhythm: Atrial fibrillation, ventricular rate 97 bpm. [place]: normal QRS: normal ST segments: No ST depression or elevation identified. 12 lead EKG: Post cardioversion EKG time, 1335. Rhythm: Sinus rhythm with occasional PVC, ventricular rate 60 bpm. [place]: normal QRS: normal ST segments: No ST depression or elevation identified, poor T-wave progression in V2, V3. [place] [facility] [place] Jenae Bur[place] : 1955 Visit/Account:[id number] Date of Sevice: 07/06/2018 Technique: CHEST PA AND LAT HISTORY: RESP DISTRESS COMPARISON: Chest radiograph May 04, 2018 Findings: The lungs are clear. No pleural effusion or pneumothorax. The cardiomediastinal silhouette is unchanged. Impression: 1. No acute cardiopulmonary process. Report Dictated By: Grant Christopher DO at 07/06/2018 12:06 PM Report E-Signed By: Grant Christopher DO at 07/06/2018 12:07 PM WSN:[id number] (TIMUR PAREKH [facility]) ED Course/Re-evaluation ED Course The patient was admitted to room. A history and physical obtained. Differential diagnoses were considered. An IV was started. A CBC, CMP and troponin were obtained.I blood cell count 3.5, chemistry showing magnesium 2.4, negative troponin. Two-view chest x-ray negative for any acute cardiopulmonary process. Initial EKG showing atrial fibrillation, ventricular rate 97 bpm. Patient is symptomatic, whenever she stands up she does become short of breath. I reviewed the laboratory studies and chest x-ray results with the patient, the patient has elected to proceed with elective cardioversion for her atrial fibrillation. The risks and benefits were reviewed with the patient, her son was at the bedside. The patient does understand she's had this done multiple times. The patient was successfully cardioverted with 200 J and sedated as noted below. A repeat EKG showing sinus rhythm with one PVC, ventricular rate 60 bpm. This was reviewed with the patient and her son. Patient did very well during the procedure. The patient was encouraged to follow up with her primary care provider within one week for reevaluation. Return to your for any other concerns or worsening sy mptoms. Patient exposed understanding and was discharged home. Procedure: Elective electrical cardioversion. The patient was electively electrically cardioverted for atrial fibrillation. The patient was on a continuous electronic device monitor, with airway equipment at the bedside. The patient was on continuous pulse oximetry. The cardioversion was attempted with 200 joules biphasic current. The cardioversion was successful. The patient tolerated the procedure well with no complications. The procedure was performed by myself, and Dr. Garett Whitman. Procedure: Procedural sedation. A pre-sedation evaluation was completed on the patient at what 1330. Patient is an appropriate candidate for procedural sedation. The risks of the sedation were discussed with the patient. A time out was completed. The patient was sedated with 25 g IV fentanyl, 50 g IV propofol. The patient was monitored with continuous pulse oximetry and nurse monitoring. There were no complications and no significant hypoxemia. I remained at the bedside for the sedation. The total time I spent in the procedural sedation was 10 minutes. The procedure was performed by myself and Dr. Garett Whitman. Decision to Disposition Date: Jul 06, 2018 Decision to Disposition Time: 14:28 (TIMUR PAREKH-[facility]) Depart Departure Latest Vital Signs Vital Signs Date Time Temp Pulse Resp B/P (MAP) Pulse Ox O2 Delivery O2 Flow Rate FiO2 07/06/18 14:35 58 38 99 07/06/18 14:30 133/84 (100) 07/06/18 10:46 98.1 Room Air (TIMUR PAREKH-[facility]) Impression: Primary Impression: Atrial fibrillation Condition: Improved Disposition: HOME OR SELF-CARE Referrals: SANTIAGO HAWKINS MD (PCP) 1 Week Patient Instructions: A-fib (Atrial Fibrillation) (ED) Additional Instructions: We were able to convert from atrial fibrillation into a normal sinus rhythm today. Please follow-up with your primary care provider within one week for reevaluation. Continue drinking plenty of water. Get plenty of rest. Continue taking your regular medications. Return to the emergency department for any other concerns or worsening symptoms. Problem Qualifiers Primary Impression: Atrial fibrillation Atrial fibrillation type: paroxysmal Qualified Codes: I48.0 - Paroxysmal atrial fibrillation DENIS WHITMAN MD Jul 06, 2018 10:56 TIMUR PAREKH [facility] Jul 06, 2018 11:33
[2018-07-06] MEDS ORDERED: NS(*) 0.9% 1000 ML BAG 1,000 ML IV ONE (11:24)
[2018-07-06] MEDS ORDERED: MOM PO (11:41)
[2018-07-06 11:44] LABS: PLATELET COUNT, AUTOMATED 169 K/uL (150-450)
--- NOTE | 2018-07-06 12:12 | RADIOLOGY IMAGING REPORT ---
[place] [facility] [place] Jenae Burrows : 1955 MR: [id number] V: [id number] EXAM DATE: ORDERING PHYSICIAN: TIMUR PAREKH TECHNOLOGIST: Location: [facility] [place] Patient: Jenae Burrows : 1955 Visit/Account:[id number] Date of Sevice: 07/06/2018 Technique: CHEST PA AND LAT HISTORY: RESP DISTRESS COMPARISON: Chest radiograph May 04, 2018 Findings: The lungs are clear. No pleural effusion or pneumothorax. The cardiomediastinal silhouett e is unchanged. Impression: 1. No acute cardiopulmonary process. Report Dictated By: Grant Christopher DO at 07/06/2018 12:06 PM Report E-Signed By: Grant Christopher DO at 07/06/2018 12:07 PM WSN:[id number]
[2018-07-06] MEDS ORDERED: ETOMIDATE 20 MG/10 ML VIAL IVP ONE (12:30)
[2018-07-06] MEDS ORDERED: PROPOFOL EMUL 10MG/ML 20 ML VL IVP ONE (12:40)
[2018-07-06] MEDS ORDERED: fentaNYL CITR 100 MCG/2 ML AMP ONE (12:50)
[2018-07-06] MEDS ORDERED: DILTIAZEM 5 MG/ML 5ML IVPUSH IVP ONE (13:05)
--- NOTE | 2018-07-06 13:50 | EKG ---
FACILITY: [facility] PATIENT NAME: DAWN ASHLEY : [id number] MR: [id number] V: [id number] EXAM DATE: ORDERING PHYSICIAN: TIMUR PAREKH TECHNOLOGIST: Test Reason : afib, sob Blood Pressure : / mmHG Vent. Rate : 097 BPM Atrial Rate : 115 BPM P-R Int : 000 ms QRS Dur : 090 ms QT Int : 384 ms P-R-T Axes : 000 -06 014 degrees QTc Int : 487 ms Atrial fibrillation Left axis Nonspecific ST-T findings Prolonged QT Abnormal ECG Confirmed by ORIN DUARTE ([id number] on 07/07/2018 5:24:48 AM Referred By: Confirmed By:ORIN DUARTE
[2018-07-06 14:30] VITALS: BP 133/84
--- NOTE | 2018-07-07 07:01 | EKG ---
FACILITY: [facility] PATIENT NAME: DAWN ASHLEY : [id number] MR: [id number] V: [id number] EXAM DATE: ORDERING PHYSICIAN: TIMUR PAREKH TECHNOLOGIST: Test Reason : post cardioversion Blood Pressure : / mmHG Vent. Rate : 060 BPM Atrial Rate : 060 BPM P-R Int : 174 ms QRS Dur : 086 ms QT Int : 462 ms P-R-T Axes : 073 -01 020 degrees QTc Int : 462 ms Sinus rhythm with occasional premature ventricular complexes Nonspecific ST and T wave abnormality Prolonged QT Abnormal ECG No previous ECGs available Confirmed by Jamison Santiago ([id number]) on 07/07/2018 7:33:11 AM Referred By: Confirmed By:Jamison Moss
== END 2018-07-06 14:48 | disposition home or self-care (01) ==
LOC: ER 10:58
DX: I48.0 Paroxysmal atrial fibrillation (principal)
CPT/HCPCS: 71046; 83735; 84484; 85025; 92960; 93005; 96361; 96374; 96375; 99152; 99285; J2704; J3010; J3490; J7030; 82040; 82247; 82310; 82374; 82435; 82565; 82947; 84075; 84132; 84155; 84295; 84450; 84460; 84520

== ENCOUNTER 2018-07-15 06:58 | Emergency (ER) | payer SELFPAY ==
[2016-09-16 13:04] VITALS: Wt 86.2 kg
[~2018-07-15 06:58] MED LIST changes: +MOM PO
--- NOTE | 2018-07-15 07:03 | ER Report ---
History and Physical Time Seen By MD: 07:03 HPI/ROS CHIEF COMPLAINT: A. fib RVR, cough, shortness of breath, weakness HISTORY OF PRESENT ILLNESS: Patient is a 56-year-old female here with complaints of cough, rapid heart rate, shortness of breath. Patient reports having an upper respiratory infection, congestion, sore throat for the past several days. This morning at approximately 3:30 she developed rapid heart rate, took 180 mg of short-acting diltiazem with persistent rapid heart rate, weakness and shortness of breath. Patient does have a long-standing history of paroxysmal atrial fibrillation and is usually in normal sinus rhythm. She has not been able to have a cardiac ablation up to this point. Patient denies chest pain, abdominal pain, nausea, vomiting, fevers. She didn't have a meal last evening and last had water approximately 30 minutes prior to arrival. She has required cardioversion in the past for conversion. Systolic blood pressure is 100 at time of evaluation, radiates veritable with initial EKG confirming atrial fibrillation with rapid ventricular response. REVIEW OF SYSTEMS: Constitutional: No fever, + chills, + general malaise Eyes: No discharge. ENT: + congestion and sore throat. Cardiovascular: No chest pain, + rapid heart rate and palpitations. Respiratory: + cough, + shortness of breath,. Gastrointestinal: No abdominal pain, no vomiting. Genitourinary: No hematuria. Musculoskeletal: No back pain. Skin: No rashes. Neurological: No headache. Allergies: Coded Allergies: Sulfa (Sulfonamide Antibiotics) (Verified Allergy, Severe, Slufing of skin, 07/15/18) Penicillins (Verified Allergy, Unknown, ANAPHYLAXIS, 07/15/18) ALL "CILLINS" Tetracyclines (Verified Allergy, Unknown, ANAPHYLAXIS, 07/15/18) Home Meds Active Scripts Lorazepam (ATIVAN) 0.5 Mg Tablet, 0.5 MG PO Q6H PRN for ANXIETY, #10 TAB 0 Refills Prov:JG EDOUARD MD 05/11/18 Reported Medications Magnesium Hydroxide (MILK OF MAGNESIA) 400 Mg/5 Ml Oral.susp, 150 MG PO 3XW, BOTTLE 07/06/18 Diltiazem Hcl (DILTIAZEM HCL) 120 Mg Tablet, 120 MG PO 06/04/18 Diltiazem HCl (Diltiazem ER) 180 Mg Tab.er.24h 06/04/18 Levothyroxine Sodium (LEVOTHYROXINE SODIUM) 50 Mcg Tablet, 25 MCG PO QODAY, TAB 05/11/18 Levothyroxine Sodium (LEVOTHYROXINE SODIUM) 50 Mcg Tablet, 50 MCG PO QDAY, TAB 05/11/18 Rivaroxaban 15 Mg (XARELTO 15 MG) 15 Mg Tablet, 15 MG PO DAILY, TAB 01/25/17 Past Medical/Surgical History Paroxysmal atrial fibrillation, hypothyroidism, CVA Hx Smoking: No Smoking Status: Never Smoker Hx Substance Use Disorder: No Hx Alcohol Use: No Constitutional Vital Sign - Last 24 Hours 07/15/18 07/15/18 07/15/18 07/15/18 07:03 07:03 07:13 07:28 Temp 98.5 Pulse 156 121 122 Resp 14 B/P (MAP) 100/75 100/75 (83) Pulse Ox 94 O2 Delivery Room Air 07/15/18 07/15/18 07/15/18 07/15/18 07:30 07:43 07:45 07:58 Pulse 125 97 Resp 11 13 B/P (MAP) 115/89 (98) 112/87 (95) Pulse Ox 92 91 07/15/18 07/15/18 07/15/18 07/15/18 08:00 08:13 08:15 08:20 Pulse 88 Resp 10 B/P (MAP) 107/73 (84) 111/72 (85) 148/108 (121) Pulse Ox 95 07/15/18 07/15/18 07/15/18 07/15/18 08:25 08:28 08:33 08:35 Pulse 98 97 Resp 10 10 B/P (MAP) 110/87 (95) 142/94 (110) Pulse Ox 98 98 O2 Delivery Nasal Cannula O2 Flow Rate 2 07/15/18 07/15/18 07/15/18 07/15/18 08:38 08:40 08:43 08:45 Pulse 96 92 Resp 10 7 B/P (MAP) 127/92 (104) 132/104 (113) Pulse Ox 99 100 07/15/18 07/15/18 07/15/18 07/15/18 08:48 08:50 08:53 08:55 Pulse 85 94 Resp 7 7 B/P (MAP) 139/92 (108) 141/105 (117) Pulse Ox 100 99 07/15/18 07/15/18 07/15/18 07/15/18 08:58 09:00 09:03 09:08 Pulse 94 90 100 Resp 10 14 13 B/P (MAP) 127/95 (106) Pulse Ox 99 99 98 07/15/18 07/15/18 07/15/18 07/15/18 09:13 09:15 09:18 09:23 Pulse 92 80 93 Resp 13 15 17 B/P (MAP) 127/94 (105) Pulse Ox 100 99 99 O2 Delivery Nasal Cannula O2 Flow Rate 2 07/15/18 07/15/18 07/15/18 07/15/18 09:28 09:30 09:33 09:38 Pulse 94 82 87 Resp 12 11 12 B/P (MAP) 106/85 (92) Pulse Ox 100 100 100 O2 Delivery Nasal Cannula Nasal Cannula O2 Flow Rate 2 2 07/15/18 07/15/18 07/15/18 07/15/18 09:45 09:53 09:54 10:00 Pulse ??? B/P (MAP) ???/??? (3445) 128/85 (99) 124/88 (100) 07/15/18 07/15/18 07/15/18 07/15/18 10:08 10:15 10:23 10:30 Pulse 99 88 Resp 12 9 B/P (MAP) 113/94 (100) 111/75 (87) Pulse Ox 95 96 07/15/18 07/15/18 07/15/18 07/15/18 10:38 10:45 10:53 11:00 Pulse 86 89 Resp 14 13 B/P (MAP) 137/81 (99) 121/88 (99) Pulse Ox 92 93 07/15/18 07/15/18 07/15/18 07/15/18 11:08 11:15 11:23 11:30 Pulse 92 112 Resp 9 23 B/P (MAP) 132/84 (100) 120/96 (104) Pulse Ox 96 94 O2 Delivery Nasal Cannula Nasal Cannula O2 Flow Rate 2 2 Physical Exam General Appearance: The patient is alert, has no immediate need for airway protection and no signs of toxicity. NAD Eyes: Pupils equal and round no pallor or injection. ENT, Mouth: Mucous membranes are moist. Respiratory: There are no retractions, lungs are clear to auscultation. Cardiovascular: + rapid rate, irregular rhythm, + strong peripheral pulses Gastrointestinal: Abdomen is soft and non tender, no masses, bowel sounds normal. Neurological: No focal neuro deficits Skin: Warm and dry, no rashes. Musculoskeletal: Neck is supple non tender. Extremities are nontender, nonswollen and have full range of motion. DIFFERENTIAL DIAGNOSIS: After history and physical exam differential diagnosis was considered for A. fib RVR, viral upper respiratory infection, pneumonia, heart failure, dehydration, electrolyte abnormality Medical Decision Making Data Points Result Diagram: 07/15/18 0704 07/15/18 0707 Laboratory Hematology Test 07/15/18 07:04 07/15/18 07:07 07/15/18 09:55 Red Blood Count 5.07 M/uL (4.17-5.56) Mean Corpuscular Volume 91.4 fL (80.0-96.0) Mean Corpuscular Hemoglobin 32.0 pg (26.0-33.0) Mean Corpuscular Hemoglobin Concent 35.0 g/dL (32.0-36.0) Red Cell Distribution Width 12.9 % (11.5-14.5) Mean Platelet Volume 9.6 fL (7.2-11.1) Neutrophils (%) (Auto) 57.8 % (39.4-72.5) Lymphocytes (%) (Auto) 14.0 % (17.6-49.6) Monocytes (%) (Auto) 26.8 % (4.1-12.4) Eosinophils (%) (Auto) 0.6 % (0.4-6.7) Basophils (%) (Auto) 0.8 % (0.3-1.4) Nucleated RBC Relative Count (auto) 0.2 /100WBC Neutrophils # (Auto) 4.1 K/uL (2.0-7.4) Lymphocytes # (Auto) 1.0 K/uL (1.3-3.6) Monocytes # (Auto) 1.9 K/uL (0.3-1.0) Eosinophils # (Auto) 0.0 K/uL (0.0-0.5) Basophils # (Auto) 0.1 K/uL (0.0-0.1) Nucleated RBC Absolute Count (auto) 0.01 K/uL Peripheral Blood Smear Yes Y/N Sodium Level 141 mmol/L (137-145) Potassium Level 3.9 mmol/L (3.5-5.0) Chloride Level 103 mmol/L (98-107) Carbon Dioxide Level 23 mmol/L (22-31) Blood Urea Nitrogen 9 mg/dl (7-18) Creatinine 0.90 mg/dl (0.52-1.04) Glomerular Filtration Rate Calc > 60.0 Random Glucose 140 mg/dl (75-110) Calcium Level 9.9 mg/dl (8.4-10.2) Total Bilirubin 0.9 mg/dl (0.2-1.3) Aspartate Amino Transf (AST/SGOT) 58 U/L (0-35) Alanine Aminotransferase (ALT/SGPT) 25 U/L (0-56) Alkaline Phosphatase 73 U/L (0-126) B-Type Natriuretic Peptide 73 pg/ml (0-100) Total Protein 9.1 g/dl (6.3-8.2) Albumin 4.8 g/dl (3.5-5.0) Urine Color Straw Urine Clarity Clear Urine pH 7.0 pH (4.8-9.5) Urine Specific [place] 1.003 Urine Protein Negative mg/dL (NEGATIVE) Urine Glucose (UA) Negative mg/dL (NEGATIVE) Urine Ketones Negative mg/dL (NEGATIVE) Urine Blood Negative (NEGATIVE) Urine Nitrite Negative (NEGATIVE) Urine Bilirubin Negative (NEGATIVE) Urine Urobilinogen Negative mg/dL (0.2-1.9) Urine Leukocyte Esterase Negative (NEGATIVE) Urine RBC None /HPF (0-2/HPF) Urine WBC <1 /HPF (0-5/HPF) Urine Squamous Epithelial Cells None /LPF (</=FEW) Urine Bacteria Negative /HPF (NONE-FEW) Urine Mucus None /HPF (NONE-FEW) Chemistry Test 07/15/18 07:04 07/15/18 07:07 07/15/18 09:55 White Blood Count 7.1 k/uL (4.5-11.0) Red Blood Count 5.07 M/uL (4.17-5.56) Hemoglobin 16.2 g/dL (12.0-16.0) Hematocrit 46.4 % (34.0-47.0) Mean Corpuscular Volume 91.4 fL (80.0-96.0) Mean Corpuscular Hemoglobin 32.0 pg (26.0-33.0) Mean Corpuscular Hemoglobin Concent 35.0 g/dL (32.0-36.0) Red Cell Distribution Width 12.9 % (11.5-14.5) Platelet Count 155 K/uL (150-450) Mean Platelet Volume 9.6 fL (7.2-11.1) Neutrophils (%) (Auto) 57.8 % (39.4-72.5) Lymphocytes (%) (Auto) 14.0 % (17.6-49.6) Monocytes (%) (Auto) 26.8 % (4.1-12.4) Eosinophils (%) (Auto) 0.6 % (0.4-6.7) Basophils (%) (Auto) 0.8 % (0.3-1.4) Nucleated RBC Relative Count (auto) 0.2 /100WBC Neutrophils # (Auto) 4.1 K/uL (2.0-7.4) Lymphocytes # (Auto) 1.0 K/uL (1.3-3.6) Monocytes # (Auto) 1.9 K/uL (0.3-1.0) Eosinophils # (Auto) 0.0 K/uL (0.0-0.5) Basophils # (Auto) 0.1 K/uL (0.0-0.1) Nucleated RBC Absolute Count (auto) 0.01 K/uL Peripheral Blood Smear Yes Y/N Glomerular Filtration Rate Calc > 60.0 Calcium Level 9.9 mg/dl (8.4-10.2) Total Bilirubin 0.9 mg/dl (0.2-1.3) Aspartate Amino Transf (AST/SGOT) 58 U/L (0-35) Alanine Aminotransferase (ALT/SGPT) 25 U/L (0-56) Alkaline Phosphatase 73 U/L (0-126) B-Type Natriuretic Peptide 73 pg/ml (0-100) Total Protein 9.1 g/dl (6.3-8.2) Albumin 4.8 g/dl (3.5-5.0) Urine Color Straw Urine Clarity Clear Urine pH 7.0 pH (4.8-9.5) Urine Specific [place] 1.003 Urine Protein Negative mg/dL (NEGATIVE) Urine Glucose (UA) Negative mg/dL (NEGATIVE) Urine Ketones Negative mg/dL (NEGATIVE) Urine Blood Negative (NEGATIVE) Urine Nitrite Negative (NEGATIVE) Urine Bilirubin Negative (NEGATIVE) Urine Urobilinogen Negative mg/dL (0.2-1.9) Urine Leukocyte Esterase Negative (NEGATIVE) Urine RBC None /HPF (0-2/HPF) Urine WBC <1 /HPF (0-5/HPF) Urine Squamous Epithelial Cells None /LPF (</=FEW) Urine Bacteria Negative /HPF (NONE-FEW) Urine Mucus None /HPF (NONE-FEW) Urinalysis Test 07/15/18 09:55 Urine Color Straw Urine Clarity Clear Urine pH 7.0 pH (4.8-9.5) Urine Specific [place] 1.003 Urine Protein Negative mg/dL (NEGATIVE) Urine Glucose (UA) Negative mg/dL (NEGATIVE) Urine Ketones Negative mg/dL (NEGATIVE) Urine Blood Negative (NEGATIVE) Urine Nitrite Negative (NEGATIVE) Urine Bilirubin Negative (NEGATIVE) Urine Urobilinogen Negative mg/dL (0.2-1.9) Urine Leukocyte Esterase Negative (NEGATIVE) Urine RBC None /HPF (0-2/HPF) Urine WBC <1 /HPF (0-5/HPF) Urine Squamous Epithelial Cells None /LPF (</=FEW) Urine Bacteria Negative /HPF (NONE-FEW) Urine Mucus None /HPF (NONE-FEW) EKG/Imaging EKG Interpretation PATIENT NAME: JENAE BURROWS DOB: [id number] MR: [id number] V: [id number] EXAM DATE: ORDERING PHYSICIAN: FROYLAN VANCE TECHNOLOGIST: Test Reason : REPEAT Blood Pressure : / mmHG Vent. Rate : 107 BPM Atrial Rate : 078 BPM P-R Int : 000 ms QRS Dur : 086 ms QT Int : 342 ms P-R-T Axes : 000 -01 216 degrees QTc Int : 456 ms Atrial fibrillation with rapid ventricular response Nonspecific ST and T wave abnormality , probably digitalis effect Abnormal ECG When compared with ECG of 15-JUL-2018 07:06, No significant change was found Confirmed by MUKESH FRAGOSO ([id number]) on 07/15/2018 9:21:08 AM Referred By: PINKY Confirmed By:MUKESH FRAGOSO PATIENT NAME: JENAE BURROWS DOB: [id number] MR: [id number] V: [id number] EXAM DATE: ORDERING PHYSICIAN: FROYLAN VANCE TECHNOLOGIST: BRO Test Reason : IRREG HR Blood Pressure : / mmHG Vent. Rate : 134 BPM Atrial Rate : 357 BPM P-R Int : 000 ms QRS Dur : 084 ms QT Int : 310 ms P-R-T Axes : 000 -07 152 degrees QTc Int : 462 ms Atrial fibrillation with rapid ventricular response Moderate voltage criteria for LVH, may be normal variant ST and T wave abnormality, consider lateral ischemia or digitalis effect Abnormal ECG When compared with ECG of 06-JUL-2018 13:35, Atrial fibrillation has replaced Sinus rhythm Vent. rate has increased BY 74 BPM T wave inversion no longer evident in Anterior leads T wave inversion now evident in Lateral leads Confirmed by MUKESH FRAGOSO ([id number]) on 07/15/2018 9:20:56 AM Referred By: PINKY Confirmed By:MUKESH FRAGOSO Monitor Interpretation: Atrial Fibrillation Imaging Location: [facility] [place] Patient: Jenae Burrows : 1955 Visit/Account:[id number] Date of Sevice: 07/15/2018 CHEST: Indication: Cough and dyspnea. Technique: Frontal and lateral views were obtained. Comparison: 07/06/2018 Skeletal and soft tissue structures: There are stable degenerative changes in the thoracic spine. No acute skeletal deformity is identified. Heart and mediastinum: Within normal limits. Lung starr: Well-expanded and clear. No focal consolidation or volume loss is identified. Pleural spaces: Unremarkable. Impression: No acute process or significant change. ED Course/Re-evaluation Clinical Indication for ER IV: Hydration, Hypotention, IV Access ED Course Patient is a 63-year-old female with a long-standing history of atrial fibrillation which is paroxysmal. Patient is on Xarelto due to prior pulmonary embolism. Patient reports having a recent upper respiratory infection with cough. She started with rapid heart rate, shortness of breath this morning at 3:30 and took 180 mg of diltiazem without relief of symptoms. She has been seen here multiple times for paroxysmal atrial fibrillation requiring electrical c ardioversion. Patient was last seen with similar symptoms on July 06. Patient does not currently have an established machine welt butter in spite of her frequent recurrences. Denies chest pains, abdominal pain, nausea, vomiting, fevers, dysuria, hematuria, melena. She is tolerating by mouth intake at this time and had her last oral intake of fluids approximately half hour prior to arrival, last meal was last evening. Shortly after arrival, synchronized cardioversion was attempted twice under sedation with etomidate (10 mg per attempt) without successful conversion to normal sinus rhythm. Patient was then bolused 10 mg of diltiazem and placed on a diltiazem infusion up to 15 mg/hr. in spite of the patient remaining hemodynamically stable with blood pressures of approximately 110-120/80 with rates between 89 and 110, patient remained symptomatic with dizziness, weakness, shortness of breath. Due to the patient's failure of outpatient therapy and increasingly refractory A. fib RVR, decision was made to transfer the patient for admission and cardiology evaluation. Patient was discussed with Dr. Pineda who was the hospitalist at [facility] who accepted the patient in transfer. Patient remained symptomatic throughout course in spite of adequate rate control and hemodynamic stability. Patient also received a liter of normal saline for hydration. Patient was transferred via EMS to [facility] in stable condition. Procedure Verbal consent was obtained for procedural sedation for synchronized cardioversion in the setting of atrial fibrillation with RVR. Risks and benefits were explained to the patient as well as the medication to be used, etomidate. Patient verbalized understanding. A brief timeout was completed with personnel that were present. Patient was placed on supplemental oxygen, capnography, respiratory therapy was present as well as backup airway management supplies, cardiac monitoring. Patient was administered 10 mg of IV etomidate and was delivered a 200 J synchronized cardioversion shock without conversion to normal sinus rhythm. Patient was then administered a subsequent dose of 10 mg of IV etomidate and delivered a 250 J shock via synchronous cardioversion without conversion. Patient tolerated the procedure well and maintained oxygen saturations greater than 90%. Patient remained hemodynamically stable throughout course of procedure. Patient regained consciousness with no adverse effects. Decision to Disposition Date: Jul 15, 2018 Decision to Disposition Time: 13:03 Depart Departure Latest Vital Signs Vital Signs Date Time Temp Pulse Resp B/P (MAP) Pulse Ox O2 Delivery O2 Flow Rate FiO2 07/15/18 11:30 120/96 (104) 07/15/18 11:23 112 23 94 Nasal Cannula 2 07/15/18 07:03 98.5 Impression: Primary Impression: Paroxysmal atrial fibrillation with rapid ventricular response Additional Impressions: Dizziness Weakness Shortness of breath Condition: Condition Unchanged Disposition: XFER TO [facility] (Transfer to [facility]) Referrals: SANTIAGO HAWKINS MD (PCP) Problem Qualifiers FROYLAN VANCE DO Jul 15, 2018 07:03
[2018-07-15] MEDS ORDERED: NS(*) 0.9% 1000 ML BAG 1,000 ML IV ONE (07:12)
--- NOTE | 2018-07-15 07:12 | EKG ---
FACILITY: [facility] - [place] PATIENT NAME: DAWN ASHLEY : [id number] MR: [id number] V: [id number] EXAM DATE: ORDERING PHYSICIAN: FROYLAN VANCE TECHNOLOGIST: BRO Test Reason : IRREG HR Blood Pressure : / mmHG Vent. Rate : 134 BPM Atrial Rate : 357 BPM P-R Int : 000 ms QRS Dur : 084 ms QT Int : 310 ms P-R-T Axes : 000 -07 152 degrees QTc Int : 462 ms Atrial fibrillation with rapid ventricular response Moderate voltage criteria for LVH, may be normal variant ST and T wave abnormality, consider lateral ischemia or digitalis effect Abnormal ECG When compared with ECG of 06-JUL-2018 13:35, Atrial fibrillation has replaced Sinus rhythm Vent. rate has increased BY 74 BPM T wave inversion no longer evident in Anterior leads T wave inversion now evident in Lateral leads Confirmed by MUKESH FRAGOSO ([id number]) on 07/15/2018 9:20:56 AM Referred By: PINKY Confirmed By:MUKESH FRAGOSO
[2018-07-15] MEDS ORDERED: ETOMIDATE 20 MG/10 ML VIAL IVP ONE ×2 (07:15→08:30)
[2018-07-15 07:26] LABS: PLATELET COUNT, AUTOMATED 155 K/uL (150-450)
--- NOTE | 2018-07-15 07:38 | RADIOLOGY IMAGING REPORT ---
FACILITY: [facility] PATIENT NAME: Jenae Burrows : 1955 MR: [id number] V: [id number] EXAM DATE: ORDERING PHYSICIAN: FROYLAN VANCE TECHNOLOGIST: Location: [facility] Patient: Jenae Burrows : 1955 Visit/Account:[id number] Date of Sevice: 07/15/2018 CHEST: Indication: Cough and dyspnea. Technique: Frontal and lateral views were obtained. Comparison: 07/06/2018 Skeletal and soft tissue structures: There are stable degenerative changes in the thoracic spine. No acute skeletal deformity is identified. Heart and mediastinum: Within normal limits. Lung starr: Well-expanded and clear. No focal consolidation or volume loss is identified. Pleural spaces: Unremarkable. Impression: No acute process or significant change. Report Dictated By: Daniel De Souza MD at 07/15/2018 7:33 AM Report E-Signed By: Daniel De Souza MD at 07/15/2018 7:34 AM WSN:[id number]
[2018-07-15] MEDS ORDERED: DILTIAZEM HCL* 100 MG ADDVIAL 100 MG in NS(*) 0.9% 100 ML ADDVANT BAG 100 ML IV SCH (08:30)
[2018-07-15] MEDS ORDERED: DILTIAZEM 5 MG/ML 5ML IVPUSH IVP ONE (08:30)
[2018-07-15] MEDS ORDERED: DILTIAZEM(*) 5 MG/ML 5ML IVP 125 MG in NS(*) 0.9% 100 ML BAG 100 ML IV ONE (08:45)
--- NOTE | 2018-07-15 09:00 | EKG ---
FACILITY: [facility] - [place] PATIENT NAME: DAWN ASHLEY : [id number] MR: [id number] V: [id number] EXAM DATE: ORDERING PHYSICIAN: FROYLAN VANCE TECHNOLOGIST: BRO Test Reason : REPEAT Blood Pressure : / mmHG Vent. Rate : 107 BPM Atrial Rate : 078 BPM P-R Int : 000 ms QRS Dur : 086 ms QT Int : 342 ms P-R-T Axes : 000 -01 216 degrees QTc Int : 456 ms Atrial fibrillation with rapid ventricular response Nonspecific ST and T wave abnormality , probably digitalis effect Abnormal ECG When compared with ECG of 15-JUL-2018 07:06, No significant change was found Confirmed by MUKESH FRAGOSO ([id number]) on 07/15/2018 9:21:08 AM Referred By: PINKY Confirmed By:MUKESH FRAGOSO
[2018-07-15 13:00] VITALS: BP 147/95
== END 2018-07-15 13:40 | disposition short-term general hospital (02) ==
LOC: ER 07:16
DX: I48.0 Paroxysmal atrial fibrillation (principal); R42 Dizziness and giddiness; R53.1 Weakness; R06.02 Shortness of breath; Z79.01 Long term (current) use of anticoagulants
CPT/HCPCS: 71046; 81001; 83880; 85025; 92960; 93005; 96361; 96365; 96366; 96375; 99285; J3490; J7030; J7050; 82040; 82247; 82310; 82374; 82435; 82565; 82947; 84075; 84132; 84155; 84295; 84450; 84460; 84520

== ENCOUNTER 2019-03-25 08:49 | Emergency (ER) | payer MEDICAID, MEDICARE ==
[2016-09-16 13:04] VITALS: Wt 92.5 kg
[~2019-03-25 08:49] MED LIST changes: -AMLO-111 PO; +AMLO-125 PO; -AMLO2.5T76 PO; +AMLO2.5T78 PO; +DRON400T4 PO
[2019-03-25] MEDS ORDERED: APIX5TAB PO (09:02)
[2019-03-25 09:23] LABS: PLATELET COUNT, AUTOMATED 157 K/uL (150-450)
[2019-03-25] MEDS ORDERED: PROPOFOL EMUL 10MG/ML 20 ML VL IVP ONE (09:25)
[2019-03-25 10:15] VITALS: BP 144/95
--- NOTE | 2019-03-25 10:35 | ER Report ---
History and Physical Time Seen By MD: 08:45 Hx. of Stated Complaint: PATIENT REPORTS A-FIB SINCE 0230. HAS HISTORY OF GOING IN AND OUT OF A-FIB. HPI/ROS Paroxysmal afib diagnosed 2-3 months ago. Has been taking daily blood thinners as instructed. TSH normal, checked 2 weeks ago. On diltiazem daily. Went into afib at 0230. Tried to treat herself with more diltizem, but unsuccessful, so came to the ED. Has been cardioverted multiple times. Is a candidate for ablation. Has appointment with Dr. Kuo in the next few weeks. Denies chest pain, SOB, fever, abdominal pain. Said when last checked her magnesium and potassium were normal. Remainder of the 14 system rev: Yes Allergies: Coded Allergies: Sulfa (Sulfonamide Antibiotics) (Verified Allergy, Severe, Slufing of skin, 07/15/18) Penicillins (Verified Allergy, Unknown, ANAPHYLAXIS, 07/15/18) ALL "CILLINS" Tetracyclines (Verified Allergy, Unknown, ANAPHYLAXIS, 07/15/18) Home Meds Active Scripts Lorazepam (ATIVAN) 0.5 Mg Tablet, 0.5 MG PO Q6H PRN for ANXIETY, #10 TAB 0 Refi lls Prov:JG EDOUARD MD 05/11/18 Reported Medications Apixaban (ELIQUIS) 5 Mg Tablet, 5 MG PO BID 03/25/19 Dronedarone Hcl (MULTAQ) 400 Mg Tablet, 400 MG PO BID 09/02/18 Diltiazem Hcl (DILTIAZEM 24HR ER) 360 Mg Cap.er.24h, 360 MG PO DAILY 09/02/18 Levothyroxine Sodium (LEVOTHYROXINE SODIUM) 75 Mcg Tablet, 75 MCG PO QDAY, TAB 09/02/18 Discontinued Reported Medications Rivaroxaban 20 Mg (XARELTO 20 MG) 20 Mg Tablet, 20 MG PO DAILY, TAB 09/02/18 Reviewed Nurses Notes: Yes Old Medical Records Reviewed: Yes Hx Smoking: No Smoking Status: Never Smoker Exposure to Second Hand Smoke?: No Hx Substance Use Disorder: No Hx Alcohol Use: No Constitutional Vital Sign - Last 24 Hours 03/25/19 03/25/19 03/25/19 03/25/19 08:49 08:50 08:57 09:00 Temp 98.2 Pulse ??? 123 Resp 16 B/P (MAP) 153/103 (120) 153/103 131/94 (106) Pulse Ox 96 O2 Delivery Room Air 03/25/19 03/25/19 03/25/19 03/25/19 09:04 09:19 09:30 09:34 Pulse 113 121 114 Resp 9 22 12 B/P (MAP) 128/113 (118) Pulse Ox 97 96 95 03/25/19 03/25/19 03/25/19 03/25/19 09:35 09:41 09:45 09:49 Pulse 65 Resp 11 B/P (MAP) 127/97 (107) 142/94 (110) 127/88 (101) Pulse Ox 93 03/25/19 03/25/19 03/25/19 03/25/19 09:50 09:55 10:00 10:04 Pulse 61 Resp 8 B/P (MAP) 144/95 (111) 143/94 (110) 136/91 (106) Pulse Ox 94 03/25/19 03/25/19 03/25/19 03/25/19 10:05 10:10 10:15 10:19 Pulse 66 Resp 28 B/P (MAP) 131/94 (106) 141/80 (100) 144/95 (111) Pulse Ox 93 Physical Exam General Appearance: The patient is alert, has no immediate need for airway protection and no current signs of toxicity. Eyes: Pupils equal and round no injection. Respiratory: Chest is non tender, lungs are clear to auscultation. Cardiac: irregular rhythm with tachycardia Gastrointestinal: Abdomen is soft and non tender, no masses, bowel sounds normal. Skin: No rashes or lesions. Medical Decision Making Data Points Result Diagram: 03/25/19 0857 03/25/19 0857 Laboratory Hematology Test 03/25/19 08:57 White Blood Count 3.4 k/uL (4.5-11.0) L Red Blood Count 5.05 M/uL (4.17-5.56) Hemoglobin 16.6 g/dL (12.0-16.0) H Hematocrit 46.4 % (34.0-47.0) Mean Corpuscular Volume 91.8 fL (80.0-96.0) Mean Corpuscular Hemoglobin 32.8 pg (26.0-33.0) Mean Corpuscular Hemoglobin Concent 35.7 g/dL (32.0-36.0) Red Cell Distribution Width 12.5 % (11.5-14.5) Platelet Count 157 K/uL (150-450) Mean Platelet Volume 9.4 fL (7.2-11.1) Neutrophils (%) (Auto) 41.3 % (39.4-72.5) Lymphocytes (%) (Auto) 37.4 % (17.6-49.6) Monocytes (%) (Auto) 20.5 % (4.1-12.4) H Eosinophils (%) (Auto) 0.3 % (0.4-6.7) L Basophils (%) (Auto) 0.5 % (0.3-1.4) Nucleated RBC Relative Count (auto) 0.2 /100WBC Neutrophils # (Auto) 1.4 K/uL (2.0-7.4) L Lymphocytes # (Auto) 1.3 K/uL (1.3-3.6) Monocytes # (Auto) 0.7 K/uL (0.3-1.0) Eosinophils # (Auto) 0.0 K/uL (0.0-0.5) Basophils # (Auto) 0.0 K/uL (0.0-0.1) Nucleated RBC Absolute Count (auto) 0.01 K/uL Peripheral Blood Smear Yes Y/N Chemistry Test 03/25/19 08:57 Sodium Level 140 mmol/L (137-145) Potassium Level 3.9 mmol/L (3.5-5.0) Chloride Level 103 mmol/L (98-107) Carbon Dioxide Level 25 mmol/L (22-31) Blood Urea Nitrogen 15 mg/dl (7-18) Creatinine 1.00 mg/dl (0.52-1.04) Glomerular Filtration Rate Calc 55.6 Random Glucose 134 mg/dl (75-110) Calcium Level 9.7 mg/dl (8.4-10.2) Magnesium Level 2.1 mg/dl (1.7-2.2) Total Bilirubin 0.7 mg/dl (0.2-1.3) Aspartate Amino Transf (AST/SGOT) 29 U/L (0-35) Alanine Aminotransferase (ALT/SGPT) 24 U/L (0-56) Alkaline Phosphatase 65 U/L (0-126) Troponin I < 0.012 ng/ml Total Protein 8.8 g/dl (6.3-8.2) Albumin 5.0 g/dl (3.5-5.0) Thyroid Stimulating Hormone (TSH) 3.26 uIU/ml (0.46-4.68) ED Course/Re-evaluation ED Course Patient with known intermittent atrial fibrillation. [facility] [place] herself go back into atrial fibrillation at 0230 this morning. Attempted to take diltiazem at home without resolve of her symptoms. She denies chest pain or shortness of breath. She has been cardioverted multiple times since the onset of her atrial fibri llation approximately 2 months ago. She takes Eliquis daily. She is scheduled to meet with an supervisor electron tube processing in the next few weeks for possible ablation. Her thyroid was checked recently. Her potassium and magnesium are both normal today. She was cardioverted using appropriate fall and 200 J. She cardioverted back into sinus rhythm with the 1st attempt. The patient tolerated the procedure very well, and will be discharged home with cardiology follow-up. Procedure Procedure: Elective electrical cardioversion. The patient was electively electrically cardioverted for atrial fibrillation. The patient was on a continuous conveyor monitor, with airway equipment at the [facility]. The patient was on continuous pulse oximetry. The cardioversion was attempted with 200 joules biphasic current. The cardioversion was successful. The patient tolerated the procedure well with no complications. The procedure was performed by myself. Procedure: Procedural sedation. A pre-sedation evaluation was completed on the patient at 0915. Patient is an appropriate candidate for procedural sedation. The risks of the sedation were discussed with the patient. A time out was completed. The patient was reevaluated immediately prior to initiation of sedation. The patient was sedated with propofol. The patient was monitored with continuous pulse oximetry and conveyor monitor. There were no complications and no significant hypoxemia. I remained at the bedside for the sedation. The total time I spent in the procedural sedation was 20 minutes. Post sedation evaluation: Patient was alert and cooperative, hemodynamically stable with appropriate respiratory status, temperature and pain control without ongoing nausea and vomiting. Decision to Disposition Date: Mar 25, 2019 Decision to Disposition Time: 10:28 Depart Departure Latest Vital Signs Vital Signs Date Time Temp Pulse Resp B/P (MAP) Pulse Ox O2 Delivery O2 Flow Rate FiO2 03/25/19 10:19 66 28 93 03/25/19 10:15 144/95 (111) 03/25/19 08:57 98.2 Room Air Impression: Primary Impression: Atrial fibrillation Additional Impression: Atrial fibrillation with rapid ventricular response Condition: Improved Disposition: HOME OR SELF-CARE Referrals: SANTIAGO HAWKINS MD (PCP) TAMIKO KUO MD Departure Forms: Medications Reconciliation, Patient Portal Information, ER Transition Record Patient Instructions: A-fib (Atrial Fibrillation) (ED) Problem Qualifiers Primary Impression: Atrial fibrillation Atrial fibrillation type: paroxysmal Qualified Codes: I48.0 - Paroxysmal atrial fibrillation DEINS WHITMAN MD Mar 25, 2019 10:35
--- NOTE | 2019-03-25 11:48 | EKG ---
FACILITY: [facility] - [place] PATIENT NAME: DAWN ASHLEY : [id number] MR: [id number] V: [id number] EXAM DATE: ORDERING PHYSICIAN: DENIS WHITMAN TECHNOLOGIST: Test Reason : afib Blood Pressure : / mmHG Vent. Rate : 116 BPM Atrial Rate : 129 BPM P-R Int : 000 ms QRS Dur : 082 ms QT Int : 276 ms P-R-T Axes : 000 -14 152 degrees QTc Int : 383 ms Atrial fibrillation Nonspecific ST and T wave abnormality , probably digitalis effect Abnormal ECG When compared with ECG of 15-JUL-2018 08:35, No significant change was found Confirmed by MUKESH FRAGOSO ([id number]) on 03/26/2019 6:37:33 AM Referred By: J CARLOS Confirmed By:MUKESH FRAGOSO
--- NOTE | 2019-03-25 11:50 | EKG ---
FACILITY: [facility] - [place], [place] PATIENT NAME: DAWN ASHLEY : [id number] MR: [id number] V: [id number] EXAM DATE: ORDERING PHYSICIAN: DENIS WHITMAN TECHNOLOGIST: SMITA Roman Reason : POST CARDIOVERSION Blood Pressure : / mmHG Vent. Rate : 065 BPM Atrial Rate : 065 BPM P-R Int : 170 ms QRS Dur : 090 ms QT Int : 422 ms P-R-T Axes : 077 -19 001 degrees QTc Int : 438 ms Normal sinus rhythm Nonspecific T wave abnormality Abnormal ECG When compared with ECG of 25-MAR-2019 08:50, Sinus rhythm has replaced Atrial fibrillation Vent. rate has decreased BY 51 BPM T wave inversion now evident in Inferior leads T wave inversion no longer evident in Lateral leads Confirmed by MUKESH FRAGOSO ([id number]) on 03/26/2019 6:37:45 AM Referred By: J CARLOS Confirmed By:MUKESH FRAGOSO
== END 2019-03-25 10:41 | disposition home or self-care (01) ==
LOC: ER 09:25
DX: I48.0 Paroxysmal atrial fibrillation (principal); Z79.01 Long term (current) use of anticoagulants
CPT/HCPCS: 83735; 84443; 84484; 85025; 92960; 93005; 94770; 99285; J2704; 82040; 82247; 82310; 82374; 82435; 82565; 82947; 84075; 84132; 84155; 84295; 84450; 84460; 84520